=== PATIENT | female | born 1930 | race Caucasian/White ===

== ENCOUNTER 2017-05-26 09:54 | Inpatient (IN) | payer OTHER ==
[2017-05-26 10:33] LABS: BASOPHILS % (AUTO) 0.3 % (0.0-3.0); EOSINOPHILS % (AUTO) 0.3 % (0.0-7.0); HEMATOCRIT 40.9 % (37.0-47.0); HEMOGLOBIN 14.3 g/dl (12.0-16.0); IMMATURE GRANULOCYTE % (AUTO) 0.6 % (0.0-5.0); LYMPHOCYTES % (AUTO) 9.4 (10.0-50.0); MEAN CORPUSCULAR HEMOGLOBIN 34.1 pg (27.0-31.0); MEAN CORPUSCULAR VOLUME 97.6 fl (81.0-99.0); MONOCYTES # (AUTO) 0.4 K/uL (0.4-2.0); MONOCYTES % (AUTO) 3.6 (0-10); NEUTROPHILS % (AUTO) 85.8; PLATELET COUNT 186 10^3/uL (140-440); RED BLOOD COUNT 4.19 10^6/ul (4.20-5.40); WHITE BLOOD COUNT 10.52 K/ul (4.6-10.2)
--- NOTE | 2017-05-26 10:40 | CT ---
EXAM: CT chest without intravenous contrast 05/26/2017. Sagittal and coronal reformatted images obt ained HISTORY: Cough COMPARISON: 10/06/2015 FINDINGS: Moderate cardiomegaly. No pericardial effusion. The right lung remains normally aerated. Consolidation is present within the left lung base. This e xtends from the level of the left hilum through the dependent aspect of the left lower lobe. There i s occlusion of multiple lower lobe airways. Aspiration could potentially give this appearance. This likely represents left lower lobe pneumonia. No pleural effusion. No pneumothorax. Limited views of the upper abdomen show no acute abnormality. 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 Multilevel anterior wedging configuration. No acu te fracture. IMPRESSION: 1. Consolidation extends in the left hilum to the dependent aspect of the left lower lobe. This is most compatible with pneumonia. 2. Occlusion of multiple left lower lobe airways. This combination of findings could potentially re late to aspiration. Correlate clinically. 3. Cardiomegaly.
[2017-05-26 10:58] LABS: ABG BASE EXCESS 3 (-2.0-2.0); ABG HCO3 27.7 (22.0-26.0); ABG PCO2 42.1 mmHg (35-45); ABG PH 7.426 (7.35-7.45); ABG TCO2 29 (22.0-28.0)
[2017-05-26 11:04] LABS: ALBUMIN 3.3 g/dL (3.4-5.0); ALBUMIN/GLOBULIN RATIO 0.87; ANION GAP 16.8; BILIRUBIN,TOTAL 0.75 mg/dL (0.00-1.20); BUN/CREATININE RATIO 22.09; CALCIUM 9.9 mg/dL (8.2-10.2); CREATININE 0.86 mg/dL (0.60-1.30); DIGOXIN 0.9 ng/mL (1.00-2.00); POTASSIUM 3.8 mmol/L (3.5-5.10); TOTAL PROTEIN 7.1 g/dL (5.8-8.1)
[2017-05-26] MEDS ORDERED: NITROSTAT SL PRN (11:30)
--- NOTE | 2017-05-26 11:34 | ED.PDOC ---
General ED Provider: Dr. HARRIS HUFF Chief Complaint: Cough Stated Complaint: cough Time Seen by Physician: 10:00 Information Source: [facility], EMT Exam Limitations: No limitations Primary Care Provider: SERGIO SAWANT Nursing and Triage Documentation Reviewed and Agree: Yes Respiratory Complaint Exam - Respiratory Complaint/Exam Onset/Duration: 1 day Symptoms Are: Still present Timing: Intermittent Initial Severity: Moderate Current Severity: Mild Location: Chest Character: Reports: Non-productive cough Aggravating: Reports: None Alleviating: Reports: None Associated Signs and Symptoms: Reports: URI. Denies: Rapid breathing, Dyspnea, Fever, Chills, Chest pain, Pleuritic chest pain, Wheezing, Hemoptysis, Dizziness , Calf pain, Calf swelling, Edema, Nasal congestion, Hoarseness, Sinus discomfort, Vomiting, Sore throat, Weight loss, Decreased oral intake, Increased thirst, Increased appetite, Increased urination Related History: Reports: Similar episode History of Healthcare-Acquired Pneumonia: Lives at [facility] Related Surgical History: Reports: None Pulmonary Embolism Risk Factors: Bedrest Cardiac Risk Factors: Reports: Hypertension Pseudomonas Risk Factors: Reports: None Tuberculosis Risk Factors: Reports: Chronic Resp. Faliure Status Asthmaticus Risk Factors: Reports: None Home Oxygen Use: No Home Peak Flow: Recent personal best Recent Stress Test: No Recent Echo/LV Function: No Current Antibiotic Use: No Current Asthma Medication Use: No Respiratory Distress: None Inadequate Respiratory Effort: No Dysphagia Present: No Stridor Present: No JVD Present: No Accessory Muscle Use: No Retractions: Not Present Diminished Breath Sounds: No Sinus Tenderness: None Grunting Respirations: No Kussmaul Respirations: No Differential Diagnoses: Pneumonia, Bronchitis Review of Systems - Review Of Systems Constitutional: Reports: Malaise Eyes: Reports: No symptoms Ears, Nose, Mouth, Throat: Reports: No symptoms Respiratory: Reports: Cough Cardiac: Reports: No symptoms GI: Reports: No symptoms : Reports: No symptoms Musculoskeletal: Reports: No symptoms Skin: Reports: No symptoms Neurological: Reports: No symptoms Endocrine: Reports: No symptoms Hematologic/Lymphatic: Reports: No symptoms All Other Systems: Reviewed and Negative Past Medical History - Past Medical History Previously Healthy: Yes Endocrine: Reports: Hypothyroid Cardiovascular: Reports: CAD, Hypertension, A-Fib Respiratory: Reports: None Hematological: Reports: Anemia Gastrointestinal: Reports: GERD Genitourinary: Reports: Unknown (evaluated yesterday for UTI) Neuro/Psych: Reports: Depression, Bipolar Disorder, Dementia Musculoskeletal: Reports: Arthritis, Back Pain, Joint Pain, Unknown Cancer: Reports: Unknown Last Menstrual Period: hysterectomy - Surgical History General Surgical History: Reports: Appendectomy - Family History Family History: Reports: Unknown - Social History Smoking Status: Never smoker Hx Substance Use: No Alcohol Screening: None Physical Exam - Physical Exam Appearance: Well-appearing, No pain distress, Well-nourished Eyes: BASIL, EOMI, Conjunctiva clear ENT: Ears normal, Nose normal, Oropharynx normal Respiratory: Rhonchi Cardiovascular: RRR, Pulses normal, No rub, No murmur GI/: Soft, Nontender, No masses, Bowel sounds normal, No Organomegaly Musculoskeletal: Normal strength, ROM intact, No edema, No calf tenderness Skin: Warm, Dry, Normal color Neurological: Sensation intact, Motor intact, Reflexes intact, Cranial nerves intact, Alert, Oriented Psychiatric: Affect appropriate, Mood appropriate Interpretation - Radiology Interpretation Radiology Interpretation By: Radiologist Radiology Results: Positive (pneumonia) - Principal Process Engineer Ectopy: None (slow afib) Physician Notification - Case Discussed Physician Notified: sawant Time of Notification: 11:34 (admitt) Admit To: Inpatient Critical Care Note - Critical Care Note Total Time (mins): 0 Course - Course Hematology/Chemistry: 05/26/17 10:28 05/26/17 10:28 Orders, Labs, Meds: Lab Review 05/26/17 05/26/17 05/26/17 10:28 10:28 10:36 WBC 10.52 H RBC 4.19 L Hgb 14.3 Hct 40.9 MCV 97.6 MCH 34.1 H MCHC 35.0 RDW Coeff of [place] 12.6 Plt Count 186 Immature Gran % (Auto) 0.6 Neut % (Auto) 85.8 Lymph % (Auto) 9.4 L [place] % (Auto) 3.6 Eos % (Auto) 0.3 Baso % (Auto) 0.3 Immature Gran # (Auto) 0.1 Neut # 9.0 H Lymph # 1.0 [place] # 0.4 Eos # 0.0 Baso # 0.0 Puncture Site Rrad O2 Saturation 92.0 L ABG pH 7.426 ABG pCO2 42.1 ABG pO2 61.0 L ABG HCO3 27.7 H ABG Total CO2 29 H ABG Base Excess 3 H Demetri Test + FiO2 % 21.0 Sodium 137 Potassium 3.8 Chloride 101 Carbon Dioxide 23 Anion Gap 16.8 BUN 19 H Creatinine 0.86 Estimated GFR (MDRD) 63.00 BUN/Creatinine Ratio 22.09 Glucose 227 H Calcium 9.9 Total Bilirubin 0.75 AST 22 ALT 18 Alkaline Phosphatase 89 Total Protein 7.1 Albumin 3.3 L Globulin 3.8 Albumin/Globulin Ratio 0.87 Digoxin 0.90 L Orders Category Date Time Status ADMIT PATIENT INPATIENT .TO [facility] (MONITORED BED) ADMISSION 05/26/17 11: 27 Ordered ABG DRAW REQUEST Stat CARDIO 05/26/17 10:36 Ordered EKG-(ED ONLY) Stat CARDIO 05/26/17 10:36 Ordered EKG-(IP & OP ONLY) DAILY CARDIO 05/27/17 06:00 Ordered EKG-(IP & OP ONLY) DAILY CARDIO 05/28/17 06:00 Ordered EKG-(IP & OP ONLY) DAILY CARDIO 05/29/17 06:00 Ordered OXYGEN Routine CARDIO 05/26/17 11:28 Ordered ACTIVITY .Complete BR CARE 05/26/17 11:27 Ordered BLOOD GLUCOSE MONITORING ACCUCHECK Q6H CARE 05/26/17 11:27 Ordered TELEMETRY MONITORING TELE CARE 05/26/17 11:28 Ordered VITAL SIGNS Q8HR CARE 05/26/17 11:27 Ordered REGULAR DIET DIETARY 05/26/17 Dinner Ordered ABG Stat LAB 05/26/17 10:36 Completed BLOOD CULTURE Stat LAB 05/26/17 10:12 Ordered CBC W/ AUTO DIFF DAILY@0600 LAB 05/27/17 06:00 Ordered CBC W/ AUTO DIFF DAILY@0600 LAB 05/28/17 06:00 Ordered CBC W/ AUTO DIFF DAILY@0600 LAB 05/29/17 06:00 Ordered CBC W/ AUTO DIFF DAILY@0600 LAB 05/30/17 06:00 Ordered CBC W/ AUTO DIFF DAILY@0600 LAB 05/31/17 06:00 Ordered CBC W/ AUTO DIFF DAILY@0600 LAB 06/01/17 06:00 Ordered CBC W/ AUTO DIFF DAILY@0600 LAB 06/02/17 06:00 Ordered CBC W/ AUTO DIFF DAILY@0600 LAB 06/03/17 06:00 Ordered CBC W/ AUTO DIFF DAILY@0600 LAB 06/04/17 06:00 Ordered CBC W/ AUTO DIFF DAILY@0600 LAB 06/05/17 06:00 Ordered CBC W/ AUTO DIFF DAILY@0600 LAB 06/06/17 06:00 Ordered CBC W/ AUTO DIFF DAILY@0600 LAB 06/07/17 06:00 Ordered CBC W/ AUTO DIFF DAILY@0600 LAB 06/08/17 06:00 Ordered CBC W/ AUTO DIFF DAILY@0600 LAB 06/09/17 06:00 Ordered CBC W/ AUTO DIFF DAILY@0600 LAB 06/10/17 06:00 Ordered CBC W/ AUTO DIFF DAILY@0600 LAB 06/11/17 06:00 Ordered CBC W/ AUTO DIFF DAILY@0600 LAB 06/12/17 06:00 Ordered CBC W/ AUTO DIFF DAILY@06 LAB 06/13/17 06:00 Ordered CBC W/ AUTO DIFF DAILY@0600 LAB 06/14/17 06:00 Ordered CBC W/ AUTO DIFF DAILY@06 LAB 06/15/17 06:00 Ordered CBC W/ AUTO DIFF [facility] LAB 05/26/17 10:11 Ordered COMPREHENSIVE METABOLIC PANEL DAILY@0600 LAB 05/27/17 06:00 Ordered COMPREHENSIVE METABOLIC PANEL DAILY@0600 LAB 05/28/17 06:00 Ordered COMPREHENSIVE METABOLIC PANEL DAILY@0600 LAB 05/29/17 06:00 Ordered COMPREHENSIVE METABOLIC PANEL DAILY@0600 LAB 05/30/17 06:00 Ordered COMPREHENSIVE METABOLIC PANEL DAILY@0600 LAB 05/31/17 06:00 Ordered COMPREHENSIVE METABOLIC PANEL DAILY@06 LAB 06/01/17 06:00 Ordered COMPREHENSIVE METABOLIC PANEL DAILY@0600 LAB 06/02/17 06:00 Ordered COMPREHENSIVE METABOLIC PANEL DAILY@06 LAB 06/03/17 06:00 Ordered COMPREHENSIVE METABOLIC PANEL DAILY@0600 LAB 06/04/17 06:00 Ordered COMPREHENSIVE METABOLIC PANEL DAILY@0600 LAB 06/05/17 06:00 Ordered COMPREHENSIVE METABOLIC PANEL DAILY@0600 LAB 06/06/17 06:00 Ordered COMPREHENSIVE METABOLIC PANEL DAILY@0600 LAB 06/07/17 06:00 Ordered COMPREHENSIVE METABOLIC PANEL DAILY@0600 LAB 06/08/17 06:00 Ordered COMPREHENSIVE METABOLIC PANEL DAILY@0600 LAB 06/09/17 06:00 Ordered COMPREHENSIVE METABOLIC PANEL DAILY@0600 LAB 06/10/17 06:00 Ordered COMPREHENSIVE METABOLIC PANEL DAILY@0600 LAB 06/11/17 06:00 Ordered COMPREHENSIVE METABOLIC PANEL DAILY@0600 LAB 06/12/17 06:00 Ordered COMPREHENSIVE METABOLIC PANEL DAILY@0600 LAB 06/13/17 06:00 Ordered COMPREHENSIVE METABOLIC PANEL DAILY@0600 LAB 06/14/17 06:00 Ordered COMPREHENSIVE METABOLIC PANEL DAILY@0600 LAB 06/15/17 06:00 Ordered COMPREHENSIVE METABOLIC PANEL Stat LAB 05/26/17 10:11 Ordered CREATINE KINASE Q8H LAB 05/26/17 17:30 Ordered CREATINE KINASE Q8H LAB 05/27/17 01:30 Ordered DIGOXIN Stat LAB 05/26/17 10:28 Completed TROPONIN I Q8H LAB 05/26/17 17:30 Ordered TROPONIN I Q8H LAB 05/27/17 01:30 Ordered Acetaminophen [Tylenol] MEDS 05/26/17 21:00 Ordered 1,000 mg PO BID Alprazolam [Xanax] MEDS 05/26/17 15:00 Ordered 0.25 mg PO TID Furosemide [Lasix Tab] MEDS 05/27/17 06:30 Ordered 20 mg PO QDAC Levofloxacin/D5w [Levaquin] 500 mg MEDS 05/27/17 09:00 Ordered Premix 100 ml D5w 1 bag IV DAILY Levothyroxine Sodium [Synthroid] MEDS 05/27/17 06:30 Ordered 112 mcg PO QDAC Losartan Potassium MEDS 05/27/17 09:00 Ordered 50 mg PO DAILY Nitroglycerin [Nitrostat] MEDS 05/26/17 11:30 Ordered 0.4 mg SL Q5MIN X 3 DOSES PRN Potassium Chloride [Micro-K Cap] MEDS 05/26/17 21:00 Ordered 20 meq PO BID Pravastatin Sodium [Pravachol] MEDS 05/27/17 09:00 Ordered 20 mg PO DAILY Rivaroxaban [Xarelto] MEDS 05/27/17 09:00 Ordered 20 mg PO DAILY Sodium Chloride 0.9% [Sodium Chloride] 1,000 ml MEDS 05/26/17 11:30 Ordered IV 75 mls/hr CT CHEST W/O CONTRAST Stat RADS 05/26/17 10:11 Ordered Medications Generic Name Dose Route Start Last Admin Trade Name Freq PRN Reason Stop Dose Admin Levofloxacin/Dextrose 500 mg/ 100 mls @ 100 mls/hr 05/27/17 09:00 Dextrose IV DAILY SANCHEZ Sodium Chloride 1,000 mls @ 75 mls/hr 05/26/17 11:30 Sodium Chloride IV .[id number] SANCHEZ Vital Signs: Temp Pulse Resp BP Pulse Ox 05/26/17 09:55 98.1 F 62 18 101/52 L 95 Departure - Departure Time of Disposition: 11:34 Disposition: ADMITTED INPATIENT Discharge Problem: Cough Pneumonia Qualifiers: Pneumonia type: due to unspecified organism Laterality: left Lung location: lower lobe of lung Qualified Code(s): J18.1 - Lobar pneumonia, unspecified organism Instructions: Community Acquired Pneumonia (ED) Condition: Fair Pt referred to PMD for follow-up: Yes (admitt) Allergies/Adverse Reactions: Allergies haloperidol [From Haldol] Adverse Reaction (Verified 05/26/17 10:13) Penicillins Adverse Reaction (Verified 05/26/17 10:12) Home Medications: Ambulatory Orders Clonidine HCl [Catapres] 0.1 mg PO BID 05/02/13 Digoxin 0.125 mg PO DAILY 05/02/13 Diltiazem HCl [Cardizem LA] 120 mg PO DAILY 05/02/13 Donepezil HCl [Aricept] 10 mg PO BEDTIME 05/02/13 Furosemide [Lasix Tab] 20 mg PO QDAC 05/02/13 Nitroglycerin [Nitrostat] 0.4 mg SL Q5MIN X 3 DOSES PRN 05/02/13 Pravastatin Sodium [Pravachol] 20 mg PO DAILY 05/02/13 Rivaroxaban [Xarelto] 20 mg PO DAILY 05/02/13 Acetaminophen [Mapap] 1,000 mg PO BID 07/09/13 Quetiapine Fumarate [Seroquel] 12.5 mg PO BEDTIME 07/09/13 Potassium Chloride [Micro-K Cap] 20 meq PO BID 07/29/13 Alprazolam [Xanax] 0.25 mg PO TID 11/11/13 Acetaminophen [Tylenol] 650 mg PO Q8HR PRN 12/17/13 Citalopram Hydrobromide [Celexa] 40 mg PO DAILY 12/18/13 Levothyroxine Sodium [Synthroid] 112 mcg PO QDAC 10/06/15 Dexlansoprazole [Dexilant] 30 mg PO DAILY 05/26/17 Ferrous Sulfate 325 mg PO BID 05/26/17 Folic Acid 1 mg PO DAILY 05/26/17 Losartan Potassium [Cozaar] 50 mg PO DAILY 05/26/17
[2017-05-26] MEDS ORDERED: SOLU-MEDROL 125 MG IVP STA (11:36)
[2017-05-26] MEDS: SODIUM CHLORIDE 1,000 ML IV SCH (12:23)
[2017-05-26] MEDS ORDERED: LEVAQUIN 100 ML IV ONE (12:46)
[2017-05-26] MEDS: DUONEB NEB SCH ×3 (12:49→23:11)
[2017-05-26] MEDS: LEVAQUIN 500 MG in PREMIX 100 ML D5W 1 BAG IV SCH (12:50)
[2017-05-26] MEDS ORDERED: LASIX ONE (13:12)
[2017-05-26 13:49] VITALS: BMI 28.4
[2017-05-26] MEDS ORDERED: TYLENOL PO PRN (14:29)
[2017-05-26] MEDS: XANAX PO SCH ×2 (14:47→21:09)
[2017-05-26] MEDS ORDERED: XANAX PO SCH (15:00)
[2017-05-26 17:46] LABS: TROPONIN I 0.022 ng/ml (0.0000-0.4000)
[2017-05-26] MEDS ORDERED: TYLENOL PO SCH (21:00)
[2017-05-26] MEDS ORDERED: QUETIAPINE FUMARATE 12.5 MG PO SCH (21:00)
[2017-05-26] MEDS ORDERED: NON-FORMULARY MEDICATION (Ferrous Sulfate [Ferrous Sulfate] 325 MG) PO SCH ×22 (21:00)
[2017-05-26] MEDS: SOLU-MEDROL 125 MG IVP SCH (21:06)
[2017-05-26] MEDS: ARICEPT PO SCH (21:07)
[2017-05-26] MEDS: MICRO-K CAP PO SCH (21:08)
[2017-05-27 01:24] LABS: BASOPHILS % (AUTO) 0.4 % (0.0-3.0); HEMATOCRIT 38.1 % (37.0-47.0); HEMOGLOBIN 13.5 g/dl (12.0-16.0); IMMATURE GRANULOCYTE % (AUTO) 1.5 % (0.0-5.0); LYMPHOCYTES # (AUTO) 0.4 K/uL (0.60-3.4); LYMPHOCYTES % (AUTO) 3.9 (10.0-50.0); MEAN CORPUSCULAR HEMOGLOBIN 34.2 pg (27.0-31.0); MEAN CORPUSCULAR HGB CONC 35.4 (31.8-35.4); MEAN CORPUSCULAR VOLUME 96.5 fl (81.0-99.0); MONOCYTES # (AUTO) 0.1 K/uL (0.4-2.0); MONOCYTES % (AUTO) 0.8 (0-10); NEUTROPHILS # (AUTO) 8.4 K/ul (2.0-6.9); NEUTROPHILS % (AUTO) 93.4; PLATELET COUNT 171 10^3/uL (140-440); RED BLOOD COUNT 3.95 10^6/ul (4.20-5.40); WHITE BLOOD COUNT 8.95 K/ul (4.6-10.2)
[2017-05-27] MEDS: SODIUM CHLORIDE 1,000 ML IV SCH ×2 (01:27→22:42)
[2017-05-27 01:34] LABS: CREATINE KINASE 30 U/L
[2017-05-27 01:49] LABS: ALBUMIN/GLOBULIN RATIO 0.86; ANION GAP 16.4; BILIRUBIN,TOTAL 0.55 mg/dL (0.00-1.20); BUN/CREATININE RATIO 27.27; CALCIUM 9.7 mg/dL (8.2-10.2); CREATININE 0.77 mg/dL (0.60-1.30); POTASSIUM 3.4 mmol/L (3.5-5.10); TOTAL PROTEIN 6.5 g/dL (5.8-8.1)
[2017-05-27] MEDS: SOLU-MEDROL 125 MG IVP SCH ×3 (04:15→20:16)
[2017-05-27] MEDS: DUONEB NEB SCH ×4 (05:11→23:07)
[2017-05-27] MEDS: LASIX TAB PO SCH (05:47)
[2017-05-27] MEDS: SYNTHROID PO SCH (05:47)
[2017-05-27] MEDS ORDERED: XANAX PO STA (08:41)
[2017-05-27] MEDS ORDERED: NON-FORMULARY MEDICATION (Rivaroxaban [Xarelto] 20 MG) PO SCH (09:00)
[2017-05-27] MEDS ORDERED: NON-FORMULARY MEDICATION (Losartan Potassium 50 MG) PO SCH (09:00)
[2017-05-27] MEDS ORDERED: NON-FORMULARY MEDICATION (Digoxin [Digoxin] 0.125 MG) PO SCH ×22 (09:00)
[2017-05-27] MEDS ORDERED: NON-FORMULARY MEDICATION (Dexlansoprazole [Dexilant] 30 MG) PO SCH (09:00)
[2017-05-27] MEDS ORDERED: NON-FORMULARY MEDICATION (Citalopram Hydrobromide [Celexa] 40 MG) PO SCH ×22 (09:00)
[2017-05-27] MEDS ORDERED: LEVAQUIN 500 MG in PREMIX 100 ML D5W 1 BAG IV SCH (09:00)
[2017-05-27] MEDS ORDERED: CARDIZEM PO SCH (09:00)
[2017-05-27] MEDS: XANAX PO SCH ×3 (10:19→20:15)
[2017-05-27] MEDS: XARELTO PO SCH (10:19)
[2017-05-27] MEDS: PRAVACHOL PO SCH (10:20)
[2017-05-27] MEDS: LANOXIN PO SCH (10:20)
[2017-05-27] MEDS: COZAAR PO SCH (10:20)
[2017-05-27] MEDS: MICRO-K CAP PO SCH ×2 (10:20→20:15)
[2017-05-27] MEDS: CARDIZEM PO SCH ×4 (10:21→20:14)
[2017-05-27] MEDS: FERROUS SULFATE PO SCH ×2 (10:21→20:14)
[2017-05-27] MEDS: FOLIC ACID PO SCH (10:21)
[2017-05-27] MEDS: CELEXA PO SCH (10:22)
[2017-05-27] MEDS: PROTONIX PO SCH (10:22)
--- NOTE | 2017-05-27 11:16 | PCM.PROG ---
Attending Provider: ATTENDING PROVIDER: Dr. SERGIO GALEAS DATE OF SERVICE: 05/27/17 SUBJECTIVE: This 86 year old WHITE/ F was hospitalized 05/26/17. The patient is seen with Roro/Nurse Practitioner. The patient is confused, anxious and agitated. She is coughing. No fever. REVIEW OF SYSTEMS: CONSTITUTIONAL: Confused and anxious. No night sweats. No fever or chills. HEENT: Eyes: No visual changes. No eye pain. No eye discharge. ENT: No runny nose. No epistaxis. No sinus pain. No odynophagia. No congestion. RESPIRATORY: Cough and congestion. No hemoptysis. No shortness of breath. CARDIOVASCULAR: No angina symptoms. No CHF symptoms. No atypical chest pain for CAD. No palpitations. No orthopnea.. GASTROINTESTINAL: No abdominal pain. No nausea or vomiting. No diarrhea or constipation. No hematemesis. No hematochezia. GENITOURINARY: No urgency. No frequency. No dysuria. No hematuria. No obstructive symptoms. No discharge. No pain. No significant abnormal bleeding. MUSCULOSKELETAL: No musculoskeletal pain; no joint swelling. NEUROLOGICAL: Awake but confused. No headache. No neck pain. No syncope. No seizures. No dizziness. PSYCHIATRIC: Anxious. No depression. No suicidal thoughts. No homicidal thoughts. SKIN: No rash. No lesions. No wounds. ENDOCRINE: No unexplained weight loss. No weight gain. HEMATOLOGIC/LYMPHATIC: No anemia. No purpura. No petechiae. No prolonged or excessive bleeding. No palpable lymph nodes. PHYSICAL EXAMINATION: GENERAL: The patient is awake but confused lying in bed in no distress. VITAL SIGNS: Temperature 97.8 F, Pulse 92, Respiratory Rate 19, BP 129/72, Pulse Ox 96% HEENT: Head normocephalic, atraumatic. Eyes: Extraocular muscles are intact. Pupils are equal, round and reactive to light and accommodation. Ears: No lesions. Nose appeared normal. Throat: No exudate or erythema. NECK: Supple. No JVD, no carotid bruit. No lymphadenopathy or thyromegaly. LUNGS: Diminished breath sounds bilaterally. Clear to auscultation. Percussion note normal. Chest symmetrical. HEART: S1, S2, no S3. No murmurs. No cyanosis or clubbing. No ascites. Pulses: Dorsalis pedis and posterior tibial pulses +1 to +2 both sides. ABDOMEN: Soft. Non-tender. Bowel sounds active. No CVA tenderness. No mass felt. EXTREMITIES: No edema. Full range of motion of all extremities, equal. NEUROLOGIC: Awake; confused. No focal deficit. Cranial nerves II through XII are grossly intact. No headache, no double vision or headache. SKIN: Not dry. Intact. Turgor-normal. LYMPHATIC: No palpable lymph nodes/no lymphedema. MUSCULOSKELETAL: Normal joints with no swelling. Muscle tone is normal. LAB REVIEW: 05/27/17 01:05 05/27/17 01:05 05/27/17 01:05: Sodium 138, Potassium 3.4 L, Chloride 102, Carbon Dioxide 23, Anion Gap 16.4, BUN 21 H, Creatinine 0.77, Estimated GFR (MDRD) 71.00, BUN/ Creatinine Ratio 27.27, Glucose 202 H, Calcium 9.7, Total Bilirubin 0.55, AST 11 L, ALT 17, Alkaline Phosphatase 82, Total Protein 6.5, Albumin 3.0 L, Globulin 3.5, Albumin/Globulin Ratio 0.86, TSH 2.563, Free T4 0.85 05/27/17 01:05: WBC 8.95, RBC 3.95 L, Hgb 13.5, Hct 38.1, MCV 96.5, MCH 34.2 H, MCHC 35.4, RDW Coeff of [place] 12.2, Plt Count 171, Immature Gran % (Auto) 1.5, Neut % (Auto) 93.4, Lymph % (Auto) 3.9 L, [place] % (Auto) 0.8, Eos % (Auto) 0.0, Baso % (Auto) 0.4, Immature Gran # (Auto) 0.1, Neut # 8.4 H, Lymph # 0.4 L, [place] # 0.1 L, Eos # 0.0, Baso # 0.0 05/27/17 01:05: Total Creatine Kinase 30, Troponin I < 0.0100 05/26/17 17:30: Total Creatine Kinase 36, Troponin I 0.0220 ASSESSMENT: 1. Pneumonia, left lower lobe. 2. Dementia with behavioral disturbances. 3. Hypokalemia. PLAN: 1. Decrease IV fluids to 40 mL/hr 2. Xanax 0.5 mg p.o. extra this a.m. 3. Echocardiogram if not done 4. Will check on speech consult Plan and coordination of the patient's care discussed in the presence of Chief Green Officer and nurse. CONDITION: Stable SCRIBED BY: Yung JACKSONist scribed while in presence of service performed by Dr. SERGIO GALEAS/RORO LOVE APRN on 05/27/17 ([id number])
[2017-05-27] MEDS: LEVAQUIN 500 MG in PREMIX 100 ML D5W 1 BAG IV SCH (19:24)
[2017-05-27] MEDS: SEROQUEL PO SCH (20:14)
[2017-05-27] MEDS: ARICEPT PO SCH (20:14)
[2017-05-28] MEDS: SOLU-MEDROL 125 MG IVP SCH ×3 (04:07→22:03)
[2017-05-28 04:58] LABS: BASOPHILS % (AUTO) 0.1 % (0.0-3.0); HEMOGLOBIN 13.3 g/dl (12.0-16.0); IMMATURE GRANULOCYTE % (AUTO) 0.7 % (0.0-5.0); LYMPHOCYTES # (AUTO) 0.6 K/uL (0.60-3.4); LYMPHOCYTES % (AUTO) 4.5 (10.0-50.0); MEAN CORPUSCULAR HEMOGLOBIN 33.8 pg (27.0-31.0); MEAN CORPUSCULAR VOLUME 96.7 fl (81.0-99.0); MONOCYTES # (AUTO) 0.3 K/uL (0.4-2.0); MONOCYTES % (AUTO) 2.5 (0-10); NEUTROPHILS # (AUTO) 12.5 K/ul (2.0-6.9); NEUTROPHILS % (AUTO) 92.2; PLATELET COUNT 219 10^3/uL (140-440); RED BLOOD COUNT 3.93 10^6/ul (4.20-5.40); WHITE BLOOD COUNT 13.59 K/ul (4.6-10.2)
[2017-05-28] MEDS: DUONEB NEB SCH ×4 (05:18→23:20)
[2017-05-28 05:22] LABS: ALBUMIN/GLOBULIN RATIO 0.91; ANION GAP 15.5; BILIRUBIN,TOTAL 0.44 mg/dL (0.00-1.20); BUN/CREATININE RATIO 37.66; CALCIUM 9.9 mg/dL (8.2-10.2); CREATININE 0.77 mg/dL (0.60-1.30); POTASSIUM 3.5 mmol/L (3.5-5.10); TOTAL PROTEIN 6.3 g/dL (5.8-8.1)
[2017-05-28] MEDS: LASIX TAB PO SCH (06:05)
[2017-05-28] MEDS: PROTONIX PO SCH (06:05)
[2017-05-28] MEDS: SYNTHROID PO SCH (06:05)
[2017-05-28] MEDS: CELEXA PO SCH (08:27)
[2017-05-28] MEDS: FERROUS SULFATE PO SCH ×2 (08:27→22:04)
[2017-05-28] MEDS: XARELTO PO SCH (08:27)
[2017-05-28] MEDS: CARDIZEM PO SCH ×4 (08:27→22:03)
[2017-05-28] MEDS: MICRO-K CAP PO SCH ×2 (08:28→22:04)
[2017-05-28] MEDS: LANOXIN PO SCH (08:28)
[2017-05-28] MEDS: XANAX PO SCH ×3 (08:28→22:03)
[2017-05-28] MEDS: FOLIC ACID PO SCH (08:28)
[2017-05-28] MEDS: COZAAR PO SCH (08:29)
[2017-05-28] MEDS: PRAVACHOL PO SCH (08:29)
[2017-05-28] MEDS: LEVAQUIN 500 MG in PREMIX 100 ML D5W 1 BAG IV SCH (08:29)
--- NOTE | 2017-05-28 08:50 | RS.SLPCNOT ---
Speech Case Note Date of Note: 05/28/17 Title: Speech Consult Note: The patient is an 86 year old female who was admitted to this hospital with a diagnosis of left lower lobe pneumonia. The patient is a resident of a local [facility] care facility who is currently receiving and was admitted to this facility with a mechanical soft diet with nectar thick liquids. Dysphagia screening completed this date and found the patient to demonstrate safe swallowing of the current diet with no further dysphagia testing or treatment recommended at this time. The patient was dependent for feeding this date and consumed approx 25% of her breakfast meal. The patient's PMH is significant for GERD, Dementia with behavioral disturbance, Depression, Bipolar disorder, HTN, A-fib, CAD
--- NOTE | 2017-05-28 09:38 | PCM.PROG ---
Attending Provider: ATTENDING PROVIDER: Dr. SERGIO GALEAS DATE OF SERVICE: 05/28/17 SUBJECTIVE: This 86 year old WHITE/ F was hospitalized 05/26/17. The patient is seen with Roro, Nurse Practitioner. The patient is sitting up in bed, is alert but confused. She is much less anxious than yesterday. REVIEW OF SYSTEMS: CONSTITUTIONAL: No night sweats. No fatigue, malaise, lethargy. No fever or chills. HEENT: Eyes: No visual changes. No eye pain. No eye discharge. ENT: No runny nose. No epistaxis. No sinus pain. No odynophagia. No congestion. RESPIRATORY: Cough and congestion. No hemoptysis. No shortness of breath. CARDIOVASCULAR: No angina symptoms. No CHF symptoms. No atypical chest pain for CAD. No palpitations. No orthopnea.. GASTROINTESTINAL: No abdominal pain. No nausea or vomiting. No diarrhea or constipation. No hematemesis. No hematochezia. GENITOURINARY: No urgency. No frequency. No dysuria. No hematuria. No obstructive symptoms. No discharge. No pain. No significant abnormal bleeding. MUSCULOSKELETAL: No musculoskeletal pain; no joint swelling. NEUROLOGICAL: Awake, confused, seems oriented to person. No headache. No neck pain. No syncope. No seizures. No dizziness. PSYCHIATRIC: Not anxious. No depression. No suicidal thoughts. No homicidal thoughts. SKIN: No rash. No lesions. No wounds. ENDOCRINE: No unexplained weight loss. No weight gain. HEMATOLOGIC/LYMPHATIC: No anemia. No purpura. No petechiae. No prolonged or excessive bleeding. No palpable lymph nodes. PHYSICAL EXAMINATION: GENERAL: The patient is awake, confused but oriented to person, sitting in bed in no distress. VITAL SIGNS: Temperature 98.8 F, Pulse 97, Respiratory Rate 16, BP 156/86, Pulse Ox 97% HEENT: Head normocephalic, atraumatic. Eyes: Extraocular muscles are intact. Pupils are equal, round and reactive to light and accommodation. Ears: No lesions. Nose appeared normal. Throat: No exudate or erythema. NECK: Supple. No JVD, no carotid bruit. No lymphadenopathy or thyromegaly. LUNGS: Diminished breath sounds bilaterally. Clear to auscultation. Percussion note normal. Chest symmetrical. HEART: S1, S2, no S3. No murmurs. No cyanosis or clubbing. No ascites. Pulses: Dorsalis pedis and posterior tibial pulses +1 to +2 both sides. ABDOMEN: Soft. Non-tender. Bowel sounds active. No CVA tenderness. No mass felt. EXTREMITIES: No edema. Full range of motion of all extremities, equal. NEUROLOGIC: No focal deficit. Cranial nerves II through XII are grossly intact. No headache, no double vision or headache. SKIN: Not dry. Intact. Turgor-normal. LYMPHATIC: No palpable lymph nodes/no lymphedema. MUSCULOSKELETAL: Normal joints with no swelling. Muscle tone is normal. LAB REVIEW: 05/28/17 04:58 05/28/17 04:58 05/28/17 04:58: Sodium 143, Potassium 3.5, Chloride 106, Carbon Dioxide 25, Anion Gap 15.5, BUN 29 H, Creatinine 0.77, Estimated GFR (MDRD) 71.00, BUN/ Creatinine Ratio 37.66, Glucose 201 H, Calcium 9.9, Total Bilirubin 0.44, AST 23 , ALT 19, Alkaline Phosphatase 80, Total Protein 6.3, Albumin 3.0 L, Globulin 3.3, Albumin/Globulin Ratio 0.91 05/28/17 04:58: WBC 13.59 H, RBC 3.93 L, Hgb 13.3, Hct 38.0, MCV 96.7, MCH 33.8 H, MCHC 35.0, RDW Coeff of [place] 12.6, Plt Count 219, Immature Gran % (Auto) 0.7, Neut % (Auto) 92.2, Lymph % (Auto) 4.5 L, [place] % (Auto) 2.5, Eos % (Auto) 0.0, Baso % (Auto) 0.1, Immature Gran # (Auto) 0.1, Neut # 12.5 H, Lymph # 0.6, [place] # 0.3 L, Eos # 0.0, Baso # 0.0 ASSESSMENT: 1. Pneumonia, left lower lobe. 2. Dementia with behavioral disturbances. 3. Hypokalemia. resolved PLAN: 1. Tussionex one tsp b.i.d. q.12 p.r.n. 2. Speech is present this morning for evaluation 3. The patient has been receiving nectar thick liquids and mechanical soft diet at senior care Plan and coordination of the patient's care discussed in the presence of Chemical Applicator and nurse. CONDITION: Stable SCRIBED BY: ARIANNA BASHIR Cast Associate scribed while in presence of service performed by Dr. SERGIO GALEAS/RORO LOVE APRN on 05/28/17 ([id number])
[2017-05-28] MEDS: SODIUM CHLORIDE 1,000 ML IV SCH (09:52)
[2017-05-28] MEDS: TUSSIONEX PO PRN (13:37)
[2017-05-28] MEDS: SEROQUEL PO SCH (22:04)
[2017-05-28] MEDS: ARICEPT PO SCH (22:04)
[2017-05-29] MEDS: SODIUM CHLORIDE 1,000 ML IV SCH (02:54)
[2017-05-29] MEDS: SOLU-MEDROL 125 MG IVP SCH (04:04)
[2017-05-29 04:59] LABS: BASOPHILS % (AUTO) 0.1 % (0.0-3.0); HEMATOCRIT 37.9 % (37.0-47.0); HEMOGLOBIN 13.2 g/dl (12.0-16.0); LYMPHOCYTES # (AUTO) 0.5 K/uL (0.60-3.4); LYMPHOCYTES % (AUTO) 4.4 (10.0-50.0); MEAN CORPUSCULAR HEMOGLOBIN 33.8 pg (27.0-31.0); MEAN CORPUSCULAR HGB CONC 34.8 (31.8-35.4); MEAN CORPUSCULAR VOLUME 97.2 fl (81.0-99.0); MONOCYTES # (AUTO) 0.3 K/uL (0.4-2.0); MONOCYTES % (AUTO) 3.1 (0-10); NEUTROPHILS % (AUTO) 91.4; PLATELET COUNT 212 10^3/uL (140-440); WHITE BLOOD COUNT 10.89 K/ul (4.6-10.2)
[2017-05-29] MEDS: DUONEB NEB SCH ×4 (05:11→23:23)
[2017-05-29 05:28] LABS: ALBUMIN 2.9 g/dL (3.4-5.0); ALBUMIN/GLOBULIN RATIO 0.97; ANION GAP 13.5; BILIRUBIN,TOTAL 0.39 mg/dL (0.00-1.20); BUN/CREATININE RATIO 43.75; CALCIUM 9.3 mg/dL (8.2-10.2); CREATININE 0.8 mg/dL (0.60-1.30); POTASSIUM 3.5 mmol/L (3.5-5.10); TOTAL PROTEIN 5.9 g/dL (5.8-8.1)
[2017-05-29] MEDS: PROTONIX PO SCH (06:19)
[2017-05-29] MEDS: LASIX TAB PO SCH (06:19)
[2017-05-29] MEDS: SYNTHROID PO SCH (06:19)
[2017-05-29] MEDS: LEVAQUIN 500 MG in PREMIX 100 ML D5W 1 BAG IV SCH (09:06)
[2017-05-29] MEDS: XANAX PO SCH ×3 (09:06→20:45)
[2017-05-29] MEDS: XARELTO PO SCH (09:07)
[2017-05-29] MEDS: MICRO-K CAP PO SCH ×2 (09:07→20:46)
[2017-05-29] MEDS: CELEXA PO SCH (09:07)
[2017-05-29] MEDS: PRAVACHOL PO SCH (09:07)
[2017-05-29] MEDS: COZAAR PO SCH (09:08)
[2017-05-29] MEDS: FOLIC ACID PO SCH (09:08)
[2017-05-29] MEDS: FERROUS SULFATE PO SCH ×2 (09:08→20:46)
[2017-05-29] MEDS: LANOXIN PO SCH (09:08)
[2017-05-29] MEDS: CARDIZEM PO SCH ×4 (09:09→20:46)
[2017-05-29] MEDS: TUSSIONEX PO PRN (09:10)
--- NOTE | 2017-05-29 11:03 | PCM.PROG ---
Attending Provider: ATTENDING PROVIDER: Dr. SERGIO GALEAS DATE OF SERVICE: 05/29/17 SUBJECTIVE: This 86 year old WHITE/ F was hospitalized 05/26/17. The patient is hospitalized with pneumonia and is being treated with IV antibiotics, steroids and nebs treatment. Condition is stable. REVIEW OF SYSTEMS: CONSTITUTIONAL: No night sweats. No fatigue, malaise, lethargy. No fever or chills. HEENT: Eyes: No visual changes. No eye pain. No eye discharge. ENT: No runny nose. No epistaxis. No sinus pain. No odynophagia. No congestion. RESPIRATORY: No cough, no congestion. No hemoptysis. No shortness of breath. CARDIOVASCULAR: No angina symptoms. No CHF symptoms. No atypical chest pain for CAD. No palpitations. No orthopnea.. GASTROINTESTINAL: No abdominal pain. No nausea or vomiting. No diarrhea or constipation. No hematemesis. No hematochezia. GENITOURINARY: No urgency. No frequency. No dysuria. No hematuria. No obstructive symptoms. No discharge. No pain. No significant abnormal bleeding. MUSCULOSKELETAL: No musculoskeletal pain; no joint swelling. NEUROLOGICAL: Awake, alert, confused. No headache. No neck pain. No syncope. No seizures. No dizziness. PSYCHIATRIC: Not anxious. No depression. No suicidal thoughts. No homicidal thoughts. SKIN: No rash. No lesions. No wounds. ENDOCRINE: No unexplained weight loss. No weight gain. HEMATOLOGIC/LYMPHATIC: No anemia. No purpura. No petechiae. No prolonged or excessive bleeding. No palpable lymph nodes. PHYSICAL EXAMINATION: GENERAL: The patient is awake, alert. confused, lying in bed in no distress. VITAL SIGNS: Temperature 98.6 F, Pulse 61, Respiratory Rate 20, BP 150/92, Pulse Ox 98% HEENT: Head normocephalic, atraumatic. Eyes: Extraocular muscles are intact. Pupils are equal, round and reactive to light and accommodation. Ears: No lesions. Nose appeared normal. Throat: No exudate or erythema. NECK: Supple. No JVD, no carotid bruit. No lymphadenopathy or thyromegaly. LUNGS: Decreased breath sounds. Clear to auscultation. Percussion note normal. Chest symmetrical. HEART: S1, S2, no S3. No murmurs. No cyanosis or clubbing. No ascites. Pulses: Dorsalis pedis and posterior tibial pulses +1 to +2 both sides. ABDOMEN: Soft. Non-tender. Bowel sounds active. No CVA tenderness. No mass felt. EXTREMITIES: No pedal edema. Full range of motion of all extremities, equal. NEUROLOGIC: No focal deficit. Cranial nerves II through XII are grossly intact. No headache, no double vision or headache. SKIN: Not dry. Intact. Turgor-normal. LYMPHATIC: No palpable lymph nodes/no lymphedema. MUSCULOSKELETAL: Normal joints with no swelling. Muscle tone is normal. LAB REVIEW: 05/29/17 04:50 05/29/17 04:50 05/29/17 04:50: Sodium 140, Potassium 3.5, Chloride 106, Carbon Dioxide 24, Anion Gap 13.5, BUN 35 H, Creatinine 0.80, Estimated GFR (MDRD) 68.00, BUN/ Creatinine Ratio 43.75, Glucose 197 H, Calcium 9.3, Total Bilirubin 0.39, AST 28 , ALT 26, Alkaline Phosphatase 70, Total Protein 5.9, Albumin 2.9 L, Globulin 3.0, Albumin/Globulin Ratio 0.97 05/29/17 04:50: WBC 10.89 H, RBC 3.90 L, Hgb 13.2, Hct 37.9, MCV 97.2, MCH 33.8 H, MCHC 34.8, RDW Coeff of [place] 12.8, Plt Count 212, Immature Gran % (Auto) 1.0, Neut % (Auto) 91.4, Lymph % (Auto) 4.4 L, [place] % (Auto) 3.1, Eos % (Auto) 0.0, Baso % (Auto) 0.1, Immature Gran # (Auto) 0.1, Neut # 10.0 H, Lymph # 0.5 L, [place] # 0.3 L, Eos # 0.0, Baso # 0.0 ASSESSMENT: 1. PNEUMONIA, STABLE 2. NO CHF PLAN: 1. Continue steroids and IV antibiotics 2. Nebs treatment 3. Tussionex give one teaspoon t.i.d. Plan and coordination of the patient's care discussed in the presence of Credit Analysis Manager and nurse. CONDITION: Stable SCRIBED BY: ARIANNA BASHIR Sales Floor Associate scribed while in presence of service performed by Dr. SERGIO GALEAS on 05/29/17 ([id number])
--- NOTE | 2017-05-29 11:18 | PN ---
DATE OF SERVICE: 05/26/17 REASON FOR HOSPITALIZATION: Pneumonia HISTORY OF PRESENT ILLNESS: 86 year old white female resident of the [facility] has dry chronic cough for past several days. I was called by the Nurse at the [facility] that she would like to have a chest x-ray and I declined that and I said that if the patient needs to have chest x-ray she needs to go and be examined in the [facility] Emergency Room. She was examined and was found to have pneumonia. REVIEW OF SYSTEMS: CONSTITUTIONAL: No night sweats. No fatigue, malaise, lethargy. No fever or chills. HEENT: Eyes: No visual changes. No eye pain. No eye discharge. ENT: No runny nose. No epistaxis. No sinus pain. No sore throat. No odynophagia. No congestion. RESPIRATORY: Cough and congestion. No hemoptysis. Shortness of breath some with exertion. CARDIOVASCULAR: No angina symptoms. No CHF symptoms. No atypical chest pain for CAD. No palpitations. No orthopnea. No PND. No distress. GASTROINTESTINAL: No abdominal pain. No nausea or vomiting. No diarrhea or constipation. No hematemesis. No hematochezia. GENITOURINARY: No urgency. No frequency. No dysuria. No hematuria. No obstructive symptoms. No discharge. No pain. No significant abnormal bleeding. MUSCULOSKELETAL: No musculoskeletal pain; no joint swelling. NEUROLOGICAL: No headache. No neck pain. No syncope. No seizures. No dizziness. PSYCHIATRIC: Not anxious. No depression. No suicidal thoughts. No homicidal thoughts. SKIN: No rash. No lesions. No wounds. ENDOCRINE: No unexplained weight loss. No weight gain. HEMATOLOGIC/LYMPHATIC: No anemia. No purpura. No petechiae. No prolonged or excessive bleeding. No palpable lymph nodes. PHYSICAL EXAMINATION: GENERAL: The patient looks somewhat pale, confused and sleepy. VITAL SIGNS: Temperature 97.5, pulse 66, respiratory rate 20, blood pressure 105/52 and pulse ox 95%. HEENT: Head normocephalic, atraumatic. Eyes: Extraocular muscles are intact. Pupils are equal, round and reactive to light and accommodation. Ears: No lesions. Nose appeared normal. Throat: No exudate or erythema. NECK: Supple. No JVP, no carotid bruit. No lymphadenopathy or thyromegaly. LUNGS: Decreased breath sounds but clear to auscultation. Percussion note normal. Chest symmetrical. HEART: S1, S2, no S3. No murmurs. No cyanosis or clubbing. No ascites. Pulses: Dorsalis pedis and posterior tibial pulses +1 Bilaterally. ABDOMEN: Soft. Nontender. Bowel sounds active. No CVA tenderness. No mass felt. EXTREMITIES: +1 pitting edema. Full range of motion of all extremities, equal. NEUROLOGIC: No focal deficit. Cranial nerves II through XII are grossly intact. No headache, no double vision or headache. SKIN: Not dry. Intact. Turgor - normal. LYMPHATIC: No palpable lymph nodes/no lymphedema. MUSCULOSKELETAL: Normal joints with no swelling. Muscle tone is normal. LABS: Hgb 14.3, hct 40, WBC 10,000 normal differential, creatinine 0.8, BUN 19, potassium 3.8, glucose 227. Chest x-ray; pneumonia. ASSESSMENT: 1. Pneumonia 2. Acute bronchitis 3. Dementia 4. History fo CHF 5. History of coronary artery disease 6. Diabetes Mellitus PLAN: 1. Continue all the medications 2. Give IV Lasix 20mg PO daily 3. Elevate the legs 4. Levofloxacin 500mg PO QAM daily 5. Prednisone 125mg Q 8 hours 6. NEBS treatment The patient has atrial fibrillation and she is on Xarelto CONDITION: Stable. TIME SPENT: More than 30 minutes. Plan and coordination of the patient's care discussed in the presence of nurse. AMIRA
--- NOTE | 2017-05-29 14:53 | HP ---
DATE OF SERVICE: 05/27/17 REASON FOR HOSPITALIZATION/HISTORY OF PRESENT ILLNESS: 86 year old female who resides at [facility]. She was brought in after experiencing some coughing for two days. She has been experiencing some decreased appetite and worsening confusion. She does have a long history of dementia. The patient was subsequently admitted. REVIEW OF SYSTEMS: CONSTITUTIONAL: No night sweats. No fatigue, malaise, lethargy. No fever or chills. Weakness. HEENT: Eyes: No visual changes. No eye pain. No eye discharge. ENT: No runny nose. No epistaxis. No sinus pain. No sore throat. No odynophagia. No ear pain. Nasal congestion. RESPIRATORY: Cough, no congestion. No hemoptysis. Shortness of breath. CARDIOVASCULAR: No angina symptoms. No CHF symptoms. No atypical chest pain for CAD. No palpitations. No orthopnea. GASTROINTESTINAL: No abdominal pain. No nausea or vomiting. No diarrhea or constipation. No hematemesis. No hematochezia. Decreased appetite. GENITOURINARY: No urgency. No frequency. No dysuria. No hematuria. No obstructive symptoms. No discharge. No pain. No significant abnormal bleeding. MUSCULOSKELETAL: No musculoskeletal pain. No joint swelling. No arthritis. Weakness. NEUROLOGICAL: No headache. No neck pain. No syncope. No seizures. No dizziness. Confusion. PSYCHIATRIC: Not anxious. No depression. No suicidal thoughts. No homicidal thoughts. SKIN: No rash. No lesions. No wounds. ENDOCRINE: No unexplained weight loss. No weight gain. HEMATOLOGIC/LYMPHATIC: No anemia. No purpura. No petechiae. No prolonged or excessive bleeding. No palpable lymph nodes. PERSONAL/FAMILY/SOCIAL HISTORY: Family History is unknown. The patient has never smoker, does not use alcohol or any illicit drugs. She resides at [facility]. PAST MEDICAL/SURGICAL PROBLEMS: Hypothyroidism Coronary artery disease Hypertension Atrial fibrillation Anemia GERD Depression Bipolar disorder Dementia with behavior disturbances Osteoarthritis Dyslipidemia Anxiety Appendectomy MEDICATIONS: Aricept 10mg PO bedtime Cardizem LA 120mg Po daily Nitrostat 0.4mg SL Q 5 minutes x3 doses PRN Pravachol 20mg Po daily Catapres 0.1mg PO twice a day Lasix 20mg Po QDAC Xarelto 20mg PO daily Digoxin 0.125mg PO daily Mapap 1,000mg Po twice a day Seroquel 12.5mg Po bedtime Micro-K cap 20 meq PO twice a day Xanax 0.25mg PO three times a day Tylenol 650mg PO Q 8 hours PRN Celexa 40mg Po daily Synthroid 112mcg PO QDAC Folic acid 1mg PO daily Ferrous sulfate 325mg Po twice a day Dexilant 30mg PO daily Cozaar 50mg PO daily ALLERGIES: Haloperidol Penicillin PHYSICAL EXAMINATION: GENERAL: The patient is well appearing and no acute distress, well nourished. VITAL SIGNS: Temperature 98.1, heart rate 62, respiratory 18, blood pressure 101/52 and pulse ox 95%. HEENT: Head normocephalic, atraumatic. Eyes: Extraocular muscles are intact. Pupils are equal, round and reactive to light and accommodation. Ears: No lesions. Nose appeared normal. Throat: No exudate or erythema. NECK: Supple. No JVD, no carotid bruit. No lymphadenopathy or thyromegaly. LUNGS: Bilateral rhonchi with decreased breath sound bilaterally. Percussion note normal. Chest symmetrical. HEART: S1, S2, no S3. No murmurs. No cyanosis or clubbing. No ascites. Pulses: Dorsalis pedis and posterior tibial pulses +1 to +2 both sides. No click or rubs. ABDOMEN: Soft. Nontender. Bowel sounds active times four quadrants. No CVA tenderness. No mass felt. No hepatosplenomegaly. EXTREMITIES: Trace pedal edema. Full range of motion of all extremities, equal. No joint swelling. No calf tenderness or redness. NEUROLOGIC: No focal deficit. Cranial nerves II through XII are grossly intact. No headache, no double vision or headache. The patient is alert and oriented to person however not place and time. SKIN: Dry. Intact. Turgor - normal. Warm. LYMPHATIC: No palpable lymph nodes/no lymphedema. MUSCULOSKELETAL: Normal joints with no swelling. Muscle tone is normal. RADIOLOGICAL: Chest CT shows consolidation ascending to the left hilum to the dependent aspect of the left lower lobe most compatible with pneumonia. Occlusion of multiple left lower airways. This combination could relate aspiration and cardiomegaly. LABS: ABG FiO2 21, pH 7.426, pCO2 42, pO2 61, Base Excess of 3, HCO3 26.7, TCO2 29, O2 92, WBC 10.52, RBC 4.19, hgb 14.3, hct 40.9, plt count 186, sodium 137, potassium 3.8, chloride 101, CO2 23, BUN 19, creatinine 0.86, glucose 227, total bilirubin 0.75, AST 22, ALT 18, total protein 7.1, albumin 3.3, globin 3.8 , Digoxin level 0.9. ASSESSMENT: 1. Left lower lobe pneumonia 2. Possibly aspiration syndrome 3. Cardiomegaly 4. Atrial fibrillation 5. Dyslipidemia PLAN: 1. Will admit to the floor 2. Routine telemetry orders 3. Oxygen as needed PRN 4. Start DUO NEBS Q 6 hours 5. Continue home medications 6. Will put on Levaquin 500mg daily 7. Solu-Medrol 125mg Q 8 hours 8. Continue Xarelto 20mg for atrial fibrillation 9. D5 1/2 normal saline at 75cc an hour 10. CBC and CMP daily 11. Will contact speech therapy regarding consult 12. Will continue to follow closely TIME SPENT: More than 70 minutes. MTDD
--- NOTE | 2017-05-29 15:12 | PN ---
DATE OF SERVICE: 05/28/17 SUBJECTIVE: The patient was seen and examined with the Nurse Practitioner and Butt Trimmer. 86 year old white female hospitalized with pneumonia. Condition seems to be improving clinically. She is not in distress. PHYSICAL EXAMINATION: GENERAL: The patient is confused but alert. HEENT: Head normocephalic, atraumatic. Eyes: Extraocular muscles are intact. Pupils are equal, round and reactive to light and accommodation. Ears: No lesions. Nose appeared normal. Throat: No exudate or erythema. NECK: Supple. No JVD, no carotid bruit. No lymphadenopathy or thyromegaly. LUNGS: Decreased breath sounds but clear to auscultation. Percussion note normal. Chest symmetrical. HEART: S1, S2, no S3. No murmurs. No cyanosis or clubbing. No ascites. Pulses: Dorsalis pedis and posterior tibial pulses +1 to +2 both sides. ABDOMEN: Soft. Nontender. Bowel sounds active. No CVA tenderness. No mass felt. EXTREMITIES: No edema. Full range of motion of all extremities, equal. NEUROLOGIC: No focal deficit. Cranial nerves II through XII are grossly intact. No headache, no double vision or headache. SKIN: Not dry. Intact. Turgor - normal. LYMPHATIC: No palpable lymph nodes/no lymphedema. MUSCULOSKELETAL: Normal joints with no swelling. Muscle tone is normal. ASSESSMENT: 1. Pneumonia PLAN: 1. Give Tussionex because of dry cough she has 2. Will do Echocardiogram today or tomorrow to evaluate LV function. CONDITION: Stable TIME SPENT: More than 30 minutes. Plan and coordination of the patient's care discussed in the presence of nurse. AMIRA
[2017-05-29] MEDS ORDERED: TUSSIONEX PO STA (16:11)
[2017-05-29] MEDS: PREDNISONE PO SCH (17:52)
[2017-05-29] MEDS: SEROQUEL PO SCH (20:44)
[2017-05-29] MEDS: ARICEPT PO SCH (20:45)
[2017-05-29] MEDS: TUSSIONEX PO SCH (20:55)
[2017-05-29] MEDS ORDERED: TUSSIONEX PO SCH ×2 (21:00)
[2017-05-30] MEDS: SODIUM CHLORIDE 1,000 ML IV SCH (03:39)
[2017-05-30] MEDS: DUONEB NEB SCH ×4 (05:12→22:39)
[2017-05-30 05:25] LABS: BASOPHILS % (AUTO) 0.2 % (0.0-3.0); HEMATOCRIT 36.4 % (37.0-47.0); HEMOGLOBIN 12.5 g/dl (12.0-16.0); IMMATURE GRANULOCYTE % (AUTO) 1.5 % (0.0-5.0); LYMPHOCYTES # (AUTO) 0.4 K/uL (0.60-3.4); LYMPHOCYTES % (AUTO) 3.3 (10.0-50.0); MEAN CORPUSCULAR HEMOGLOBIN 33.6 pg (27.0-31.0); MEAN CORPUSCULAR HGB CONC 34.3 (31.8-35.4); MEAN CORPUSCULAR VOLUME 97.8 fl (81.0-99.0); MONOCYTES # (AUTO) 0.6 K/uL (0.4-2.0); MONOCYTES % (AUTO) 4.7 (0-10); NEUTROPHILS # (AUTO) 10.6 K/ul (2.0-6.9); NEUTROPHILS % (AUTO) 90.3; PLATELET COUNT 195 10^3/uL (140-440); RED BLOOD COUNT 3.72 10^6/ul (4.20-5.40); WHITE BLOOD COUNT 11.75 K/ul (4.6-10.2)
[2017-05-30 05:43] LABS: ALBUMIN 2.6 g/dL (3.4-5.0); ALBUMIN/GLOBULIN RATIO 0.96; ANION GAP 12.5; BILIRUBIN,TOTAL 0.39 mg/dL (0.00-1.20); BUN/CREATININE RATIO 46.05; CALCIUM 8.5 mg/dL (8.2-10.2); CREATININE 0.76 mg/dL (0.60-1.30); POTASSIUM 3.5 mmol/L (3.5-5.10); TOTAL PROTEIN 5.3 g/dL (5.8-8.1)
[2017-05-30] MEDS: LASIX TAB PO SCH (05:52)
[2017-05-30] MEDS: SYNTHROID PO SCH (05:52)
[2017-05-30] MEDS: PROTONIX PO SCH (05:52)
--- NOTE | 2017-05-30 09:03 | ECHO2D ---
Date of Exam: 05/29/17 Ordering Physician: SERGIO GALEAS Room #: [id number] Reason for Echo: ATRIAL FIBRILLATION M-Mode Normal Adult Results LV Dimensions Normal Adult Results AoV Opening excursions >1.6 >1.6 LVEDD-base- 3.5-5.8 4.9 Ao root dimensions 2.0-3.7 3.4 LVESD-base- 3.1-4.6 L. Atrium dimensions 1.9-3.8 6.3 Post. Wall thickness 0.8-1.1 1.2 IV septum (thickness) 0.7-1.2 1.2 Post. Wall excursion 0.72-1.3 NORMAL Septal motion NORMAL Systolic motion R. Ventricular cavity 1.5-2.0 NORMAL LVEF 60% 60% Paradoxical septal wall motion NORMAL 2-D : NORMAL LEFT VENTRICULAR CONTRACTILITY--NORMAL VALVES--ENLARGED LEFT ATRIAL CAVITY, NO EFFUSION, NO THROMBUS, NORMAL LEFT VENTRICLE SIZE M-MODE: MV: NORMAL AV: NORMAL TV: NORMAL PV: CHAMBER SIZE: ENLARGED LEFT ATRIAL CAVITY WALL MOTION: NORMAL PERICARDIUM: NORMAL INTERPRETATION: 1. BORDERLINE LEFT VENTRICULAR HYPERTROPHY WITH ENLARGED LEFT ATRIAL CAVITY 2. NORMAL LEFT VENTRICULAR CONTRACTILITY 3. NORMAL VALVES MTDD
--- NOTE | 2017-05-30 09:07 | PCM.PROG ---
Attending Provider: ATTENDING PROVIDER: Dr. SERGIO GALEAS DATE OF SERVICE: 05/30/17 SUBJECTIVE: This 86 year old WHITE/ F was hospitalized 05/26/17. The patient is seen with Roro, Nurse Practitioner. The patient is lying in bed, alert, still coughing. No fever. She has been eating 25 to 75% of her meals. REVIEW OF SYSTEMS: CONSTITUTIONAL: Confusion. No night sweats. No fever or chills. HEENT: Eyes: No visual changes. No eye pain. No eye discharge. ENT: No runny nose. No epistaxis. No sinus pain. No odynophagia. No congestion. RESPIRATORY: Cough and congestion. No hemoptysis. No shortness of breath. CARDIOVASCULAR: No angina symptoms. No CHF symptoms. No atypical chest pain for CAD. No palpitations. No orthopnea.. GASTROINTESTINAL: No abdominal pain. No nausea or vomiting. No diarrhea or constipation. No hematemesis. No hematochezia. GENITOURINARY: No urgency. No frequency. No dysuria. No hematuria. No obstructive symptoms. No discharge. No pain. No significant abnormal bleeding. MUSCULOSKELETAL: No musculoskeletal pain; no joint swelling. NEUROLOGICAL: Awake, alert, confused. No headache. No neck pain. No syncope. No seizures. No dizziness. PSYCHIATRIC: Not anxious. No depression. No suicidal thoughts. No homicidal thoughts. SKIN: No rash. No lesions. No wounds. ENDOCRINE: No unexplained weight loss. No weight gain. HEMATOLOGIC/LYMPHATIC: No anemia. No purpura. No petechiae. No prolonged or excessive bleeding. No palpable lymph nodes. PHYSICAL EXAMINATION: GENERAL: The patient is awake, alert, confused lying in bed in no distress. VITAL SIGNS: Temperature 98.0 F, Pulse 74, Respiratory Rate 20, BP 119/75, Pulse Ox 95% HEENT: Head normocephalic, atraumatic. Eyes: Extraocular muscles are intact. Pupils are equal, round and reactive to light and accommodation. Ears: No lesions. Nose appeared normal. Throat: No exudate or erythema. NECK: Supple. No JVD, no carotid bruit. No lymphadenopathy or thyromegaly. LUNGS: Diminished breath sounds bilaterally. Clear to auscultation. Percussion note normal. Chest symmetrical. HEART: Irregular heart rate. S1, S2, no S3. No murmurs. No cyanosis or clubbing. No ascites. Pulses: Dorsalis pedis and posterior tibial pulses +1 to +2 both sides. ABDOMEN: Soft. Non-tender. Bowel sounds active. No CVA tenderness. No mass felt. EXTREMITIES: No edema. Full range of motion of all extremities, equal. NEUROLOGIC: No focal deficit. Cranial nerves II through XII are grossly intact. No headache, no double vision or headache. SKIN: Not dry. Intact. Turgor-normal. LYMPHATIC: No palpable lymph nodes/no lymphedema. MUSCULOSKELETAL: Normal joints with no swelling. Muscle tone is normal. LAB REVIEW: 05/30/17 04:00 05/30/17 04:00 05/30/17 04:00: Sodium 144, Potassium 3.5, Chloride 110 H, Carbon Dioxide 25, Anion Gap 12.5, BUN 35 H, Creatinine 0.76, Estimated GFR (MDRD) 72.00, BUN/ Creatinine Ratio 46.05, Glucose 181 H, Calcium 8.5, Total Bilirubin 0.39, AST 29 , ALT 39, Alkaline Phosphatase 60, Total Protein 5.3 L, Albumin 2.6 L, Globulin 2.7, Albumin/Globulin Ratio 0.96 05/30/17 04:00: WBC 11.75 H, RBC 3.72 L, Hgb 12.5, Hct 36.4 L, MCV 97.8, MCH 33.6 H, MCHC 34.3, RDW Coeff of [place] 12.7, Plt Count 195, Immature Gran % (Auto) 1.5, Neut % (Auto) 90.3, Lymph % (Auto) 3.3 L, [place] % (Auto) 4.7, Eos % (Auto) 0.0, Baso % (Auto) 0.2, Immature Gran # (Auto) 0.2, Neut # 10.6 H, Lymph # 0.4 L , [place] # 0.6, Eos # 0.0, Baso # 0.0 ASSESSMENT: 1. PNEUMONIA, STABLE 2. DEMENTIA PLAN: 1. Repeat chest x-ray today 2. D/C IV fluids Plan and coordination of the patient's care discussed in the presence of Music Therapist and nurse. CONDITION: STABLE SCRIBED BY: Corey JACKSON scribed while in presence of service performed by Dr. SERGIO GALEAS/RORO LOVE APRN on 05/30/17 ([id number])
[2017-05-30] MEDS: LEVAQUIN 500 MG in PREMIX 100 ML D5W 1 BAG IV SCH (09:23)
[2017-05-30] MEDS: TUSSIONEX PO SCH ×2 (09:23→22:24)
[2017-05-30] MEDS: MICRO-K CAP PO SCH ×2 (09:25→22:25)
[2017-05-30] MEDS: LANOXIN PO SCH (09:25)
[2017-05-30] MEDS: COZAAR PO SCH (09:25)
[2017-05-30] MEDS: CELEXA PO SCH (09:25)
[2017-05-30] MEDS: XARELTO PO SCH (09:25)
[2017-05-30] MEDS: CARDIZEM PO SCH ×4 (09:26→22:25)
[2017-05-30] MEDS: PREDNISONE PO SCH ×2 (09:26→18:35)
[2017-05-30] MEDS: FERROUS SULFATE PO SCH ×2 (09:26→22:25)
[2017-05-30] MEDS: FOLIC ACID PO SCH (09:26)
[2017-05-30] MEDS: XANAX PO SCH ×3 (09:27→22:24)
[2017-05-30] MEDS: PRAVACHOL PO SCH (09:27)
--- NOTE | 2017-05-30 14:45 | DI ---
EXAM: Single frontal view of the chest HISTORY: Cough. COMPARISON: Chest x-ray 10/06/[address] chest 05/26/2017 FINDINGS: Cardiomediastinal silhouette is mildly enlarged and unchanged. There is no pneumothorax or pleural effusion. There is no consolidation, nodule or mass. There is a calcified granuloma in the right. The consolidation noted in the left lung on prior CT is not identified on today's exam. IMPRESSION: 1. Left lower lobe consolidation seen on prior CT is not identified on today's exam. 2. Cardiomegaly.
[2017-05-30] MEDS: SEROQUEL PO SCH (22:24)
[2017-05-30] MEDS: ARICEPT PO SCH (22:25)
[2017-05-31 04:50] LABS: BASOPHILS % (AUTO) 0.3 % (0.0-3.0); HEMATOCRIT 39.4 % (37.0-47.0); HEMOGLOBIN 13.9 g/dl (12.0-16.0); IMMATURE GRANULOCYTE % (AUTO) 3.2 % (0.0-5.0); LYMPHOCYTES # (AUTO) 0.9 K/uL (0.60-3.4); LYMPHOCYTES % (AUTO) 8.8 (10.0-50.0); MEAN CORPUSCULAR HEMOGLOBIN 33.7 pg (27.0-31.0); MEAN CORPUSCULAR HGB CONC 35.3 (31.8-35.4); MEAN CORPUSCULAR VOLUME 95.6 fl (81.0-99.0); MONOCYTES # (AUTO) 0.9 K/uL (0.4-2.0); MONOCYTES % (AUTO) 8.9 (0-10); NEUTROPHILS # (AUTO) 8.3 K/ul (2.0-6.9); NEUTROPHILS % (AUTO) 78.8; PLATELET COUNT 205 10^3/uL (140-440); RED BLOOD COUNT 4.12 10^6/ul (4.20-5.40); WHITE BLOOD COUNT 10.49 K/ul (4.6-10.2)
[2017-05-31] MEDS: DUONEB NEB SCH ×2 (04:58→11:20)
[2017-05-31 05:10] LABS: ALBUMIN 2.8 g/dL (3.4-5.0); ALBUMIN/GLOBULIN RATIO 1.04; ANION GAP 11.7; BILIRUBIN,TOTAL 0.57 mg/dL (0.00-1.20); BUN/CREATININE RATIO 27.77; CALCIUM 8.7 mg/dL (8.2-10.2); CREATININE 0.72 mg/dL (0.60-1.30); POTASSIUM 3.7 mmol/L (3.5-5.10); TOTAL PROTEIN 5.5 g/dL (5.8-8.1)
[2017-05-31] MEDS: PROTONIX PO SCH (05:36)
[2017-05-31] MEDS: LASIX TAB PO SCH (05:37)
[2017-05-31] MEDS: SYNTHROID PO SCH (05:37)
[2017-05-31] MEDS: XANAX PO SCH (09:00)
--- NOTE | 2017-05-31 10:31 | PCM.PROG ---
Attending Provider: ATTENDING PROVIDER: Dr. SERGIO AGUILAR This patient is seen with Roro Vargas Nurse Practioner DATE OF SERVICE: 05/31/17 SUBJECTIVE: This 86 year old WHITE/ F was hospitalized 05/26/17. Lying in bed resting comfortably. The repeat chest x-ray yesterday showed no pneumonia. She has been eating well. REVIEW OF SYSTEMS: CONSTITUTIONAL: No night sweats. No fatigue, malaise, lethargy. No fever or chills. HEENT: Eyes: No visual changes. No eye pain. No eye discharge. ENT: No runny nose. No epistaxis. No sinus pain. No odynophagia. No congestion. RESPIRATORY: Cough and congestion. No hemoptysis. No shortness of breath. CARDIOVASCULAR: No angina symptoms. No CHF symptoms. No atypical chest pain for CAD. No palpitations. No orthopnea.. GASTROINTESTINAL: No abdominal pain. No nausea or vomiting. No diarrhea or constipation. No hematemesis. No hematochezia. GENITOURINARY: No urgency. No frequency. No dysuria. No hematuria. No obstructive symptoms. No discharge. No pain. No significant abnormal bleeding. MUSCULOSKELETAL: No musculoskeletal pain; no joint swelling. NEUROLOGICAL: Confusion due to dementia. No headache. No neck pain. No syncope. No seizures. No dizziness. PSYCHIATRIC: Not anxious. No depression. No suicidal thoughts. No homicidal thoughts. SKIN: No rash. No lesions. No wounds. ENDOCRINE: No unexplained weight loss. No weight gain. HEMATOLOGIC/LYMPHATIC: No anemia. No purpura. No petechiae. No prolonged or excessive bleeding. No palpable lymph nodes. PHYSICAL EXAMINATION: GENERAL: The patient is sleepy, resting comfortably in bed in no distress. VITAL SIGNS: Temperature 98.3 F, Pulse 71, Respiratory Rate 20, BP 156/70, Pulse Ox 96% HEENT: Head normocephalic, atraumatic. Eyes: Extraocular muscles are intact. Pupils are equal, round and reactive to light and accommodation. Ears: No lesions. Nose appeared normal. Throat: No exudate or erythema. NECK: Supple. No JVD, no carotid bruit. No lymphadenopathy or thyromegaly. LUNGS: Diminished breath sounds bilaterally. Clear to auscultation. Percussion note normal. Chest symmetrical. HEART: S1, S2, no S3. No murmurs. No cyanosis or clubbing. No ascites. Pulses: Dorsalis pedis and posterior tibial pulses +1 to +2 both sides. ABDOMEN: Soft. Non-tender. Bowel sounds active. No CVA tenderness. No mass felt. EXTREMITIES: No edema. Full range of motion of all extremities, equal. NEUROLOGIC: Confusion due to dementia. No focal deficit. Cranial nerves II through XII are grossly intact. No headache, no double vision or headache. SKIN: Not dry. Intact. Turgor-normal. LYMPHATIC: No palpable lymph nodes/no lymphedema. MUSCULOSKELETAL: Normal joints with no swelling. Muscle tone is normal. LAB REVIEW: 05/31/17 04:30 05/31/17 04:30 05/31/17 04:30: Sodium 137, Potassium 3.7, Chloride 101, Carbon Dioxide 28, Anion Gap 11.7, BUN 20 H, Creatinine 0.72, Estimated GFR (MDRD) 77.00, BUN/ Creatinine Ratio 27.77, Glucose 134 H, Calcium 8.7, Total Bilirubin 0.57, AST 25 , ALT 39, Alkaline Phosphatase 66, Total Protein 5.5 L, Albumin 2.8 L, Globulin 2.7, Albumin/Globulin Ratio 1.04 05/31/17 04:30: WBC 10.49 H, RBC 4.12 L, Hgb 13.9, Hct 39.4, MCV 95.6, MCH 33.7 H, MCHC 35.3, RDW Coeff of [place] 12.4, Plt Count 205, Immature Gran % (Auto) 3.2, Neut % (Auto) 78.8, Lymph % (Auto) 8.8 L, [place] % (Auto) 8.9, Eos % (Auto) 0.0, Baso % (Auto) 0.3, Immature Gran # (Auto) 0.3, Neut # 8.3 H, Lymph # 0.9, [place] # 0.9, Eos # 0.0, Baso # 0.0 ASSESSMENT: 1. PNEUMONIA, RESOLVED 2. DEMENTIA PLAN: 1. Discharge to [place] 2. Levaquin 500 mg times two days p.o. 3. Prednisone 10 mg b.i.d. times three days 4. Duonebs b.i.d. times 7 days 5. Vital signs daily times one week 6. Repeat CBC and CMP in one week Plan and coordination of the patient's care discussed in the presence of Rn Outpatient Surgery and nurse. CONDITION: Stable SCRIBED BY: ARIANNA BASHIR Military Police Officer scribed while in presence of service performed by Dr. Aguilar/ROXANA Kincaid on 05/31/17 ([id number])
[2017-05-31] MEDS: LEVAQUIN 500 MG in PREMIX 100 ML D5W 1 BAG IV SCH ×2 (10:40→10:43)
[2017-05-31] MEDS: FOLIC ACID PO SCH (10:54)
[2017-05-31] MEDS: PREDNISONE PO SCH (10:55)
[2017-05-31] MEDS: PRAVACHOL PO SCH (10:55)
[2017-05-31] MEDS: FERROUS SULFATE PO SCH (10:55)
[2017-05-31] MEDS: XARELTO PO SCH (10:55)
[2017-05-31] MEDS: CARDIZEM PO SCH ×2 (10:55→10:56)
[2017-05-31] MEDS: MICRO-K CAP PO SCH (10:56)
[2017-05-31] MEDS: LANOXIN PO SCH (10:56)
[2017-05-31] MEDS: CELEXA PO SCH (10:56)
[2017-05-31] MEDS: COZAAR PO SCH (10:56)
[2017-05-31] MEDS: TUSSIONEX PO SCH (11:12)
--- NOTE | 2017-05-31 11:13 | CM.DICTOOL ---
ADMISSION: 05/26/17 11:33 DISCHARGE: May 31, 2017 DATE OF SERVICE: 05/31/17 FINAL DIAGNOSIS Pneumonia Hypertension Dementia Atrial Fibrillation, on Xarelto VT by history CAD Cardiomegaly Hypothyroid Osteoarthritis Osteoporosis DDD, cervical and thoracic spine Diverticulosis GERD Bipolar Disease Cholecystectomy Appendectomy Bilateral TKR LAST VITALS Temp Pulse Resp BP Pulse Ox 98.3 F 71 20 156/70 H 96 05/31/17 05:28 05/31/17 05:28 05/31/17 05:28 05/31/17 05:28 05/31/17 05:28 ACTIVE HOME MEDICATIONS Acetaminophen (Tylenol) 1000 mg BID Alprazolam (Xanax) 0.25 mg PO TID [facility] Last Admin: 05/30/17 22:24 Dose: 0.25 mg Citalopram Hydrobromide (Celexa) 40 mg PO DAILY [facility] Last Admin: 05/30/17 09:25 Dose: 40 mg Digoxin (Lanoxin) 125 mcg PO DAILY [facility] Last Admin: 05/30/17 09:25 Dose: 125 mcg Diltiazem HCl (Cardizem) 30 mg PO BID [facility] Last Admin: 05/30/17 22:25 Dose: 30 mg Diltiazem HCl (Cardizem) 60 mg PO BID [facility] Last Admin: 05/30/17 22:25 Dose: 60 mg Donepezil HCl (Aricept) 10 mg PO BEDTIME [facility] Last Admin: 05/30/17 22:25 Dose: 10 mg Ferrous Sulfate (Ferrous Sulfate) 324 mg PO BID [facility] Last Admin: 05/30/17 22:25 Dose: 324 mg Folic Acid (Folic Acid) 1 mg PO DAILY [facility] Last Admin: 05/30/17 09:26 Dose: 1 mg Furosemide (Lasix Tab) 20 mg PO QDAC [facility] Last Admin: 05/31/17 05:37 Dose: 20 mg Levothyroxine Sodium (Synthroid) 112 mcg PO QDAC [facility] Last Admin: 05/31/17 05:37 Dose: 112 mcg Losartan Potassium (Cozaar) 50 mg PO DAILY [facility] Last Admin: 05/30/17 09:25 Dose: 50 mg Nitroglycerin (Nitrostat) 0.4 mg SL Q5MIN X 3 DOSES PRN PRN Reason: Angina Dexilant 30 mg Daily [facility] Last Admin: Potassium Chloride (Micro-K Cap) 20 meq PO BID [facility] Last Admin: 05/30/17 22:25 Dose: 20 meq Pravastatin Sodium (Pravachol) 20 mg PO DAILY [facility] Last Admin: 05/30/17 09:27 Dose: 20 mg Quetiapine Fumarate (Seroquel) 12.5 mg PO BEDTIME [facility] Last Admin: 05/30/17 22:24 Dose: 12.5 mg Rivaroxaban (Xarelto) 20 mg PO DAILY [facility] Last Admin: 05/30/17 09:25 Dose: 20 mg Clonidine 0.1 mg BID [facility] Last Admin: ALLERGIES haloperidol [From Haldol] Adverse Reaction (Verified 05/26/17 10:13) Penicillins Adverse Reaction (Verified 05/26/17 10:12) NEW PRESCRIPTIONS: Duonebs BID for 7 days Levaquin 500 mg Daily for 2 days Prednisone 10 mg BID with meals for 3 days SMOKING: Not Applicable DISEASE SPECIFIC EDUCATION: Not Applicable due to patient confusion LAB REVIEW: 05/31/17 04:30 05/31/17 04:30 05/31/17 04:30: Sodium 137, Potassium 3.7, Chloride 101, Carbon Dioxide 28, Anion Gap 11.7, BUN 20 H, Creatinine 0.72, Estimated GFR (MDRD) 77.00, BUN/ Creatinine Ratio 27.77, Glucose 134 H, Calcium 8.7, Total Bilirubin 0.57, AST 25 , ALT 39, Alkaline Phosphatase 66, Total Protein 5.5 L, Albumin 2.8 L, Globulin 2.7, Albumin/Globulin Ratio 1.04 05/31/17 04:30: WBC 10.49 H, RBC 4.12 L, Hgb 13.9, Hct 39.4, MCV 95.6, MCH 33.7 H, MCHC 35.3, RDW Coeff of [place] 12.4, Plt Count 205, Immature Gran % (Auto) 3.2, Neut % (Auto) 78.8, Lymph % (Auto) 8.8 L, [place] % (Auto) 8.9, Eos % (Auto) 0.0, Baso % (Auto) 0.3, Immature Gran # (Auto) 0.3, Neut # 8.3 H, Lymph # 0.9, [place] # 0.9, Eos # 0.0, Baso # 0.0 PLAN: Discharge to [facility] Diet: CLOVER, Mechanical Soft with nectar thick liquids Patient to be upright with all meals and for at least 30 minutes after meals Activity: Up to dining room for meals at least 2 times daily Turn every 2 hours Physical Therapy evaluation Speech Therapy evaluation Medication change: Cardizem has been changed to 90 mg BID Oxygen at 2 liters per cannula prn oxygen saturation below 90% Turn every 2 hours Decubitus precautions Incontinent care CBC, CMP in one week, then monthly VItal Signs daily for 7 days Oxygen Saturation daily for 7 days ELI hose from 6 am -9 pm daily Elevate legs when in bed and when up in chair Ms. Samaniego is alert to person. She is disoriented to time and place. She requires total assistance for feeding, bathing and transfers. She requires assistance of 2 staff members for transfer from bed to chair. She is incontinent of bladder and bowel. Skin is intact and free of decubitus ulcers or rashes. Uriel Aguilar MD Roro Vargas APRN
[2017-05-31 11:23] VITALS: BP 144/60; TEMP 98.4
[2017-05-31] MEDS ORDERED: LEVAQUIN PO STA (11:32)
--- NOTE | 2017-06-13 09:40 | DS ---
DATE OF SERVICE: 05/31/17 FINAL DIAGNOSIS: 1. PNEUMONIA 2. HYPERTENSION 3. DEMENTIA 4. ATRIAL FIBRILLATION, ON XARELTO 5. NC BY HISTORY 6. CAD 7. CARDIOMEGALY 8. HYPOTHYROID 9. OSTEOARTHRITIS 10. OSTEOPOROSIS 11. DDD, CERVICAL AND THORACIC SPINE 12. DIVERTICULOSIS 13. GERD 14. BIPOLAR DISEASE 15. CHOLECYSTECTOMY 16. APPENDECTOMY 17. BILATERAL TKR DISCHARGE INSTRUCTIONS: 1. Discharge to [facility] 2. Oxygen 2L/cannula p.r.n. oxygen saturation below 90% 3. Turn every 2 hours 4. Decubitus precautions 5. Incontinent care 6. CBC, CMP in one week then monthly 7. Vital signs daily for 7 days 8. Oxygen saturation daily for 7 days 9. ELI hose from 6 a.m. to 9 p.m. daily 10. Elevate legs when in bed and when up in chair 11. The patient will be followed closely at the detention MEDICATIONS AT DISCHARGE: 1. Acetaminophen (Tylenol) 44350 mg b.i.d. 2. Alprazolam (Xanax) 0.25 mg p.o. t.i.d. [facility] 3. Citalopram Hydrobromide (Celexa) 40 mg p.o. daily [facility] 4. Digoxin (Lanoxin) 125 mcg p.o. daily [facility] 5. Diltiazem (Cardizem) 30 mg p.o. b.i.d. [facility] 6. Diltiazem (Cardizem) 60 mg p.o. b.i.d. [facility] 7. Donepezil (Aricept) 10 mg p.o. bedtime [facility] 8. Ferrous Sulfate 324 mg p.o. b.i.d. [facility] 9. Folic Acid 1 mg p.o. daily [facility] 10. Furosemide (Lasix) 20 mg p.o. q.d a.c. [facility] 11. Levothyroxine (Synthroid) 112 mcg p.o. q.d a.c. [facility] 12. Losartan (Cozaar) 50 mg p.o. daily [facility] 13. Nitroglycerin 0.4 mg SL q.5 min times three doses p.r.n. 14. Dexilant 30 mg daily [facility] 15. Potassium Chloride (Micro K Cap) 20 mEq p.o. b.i.d. [facility] 16. Pravastatin (Pravachol) 20 mg p.o. daily [facility] 17. Quetiapine (Seroquel) 12.5 mg p.o. bedtime [facility] 18. Rivroxaban (Xarelto) 20 mg p.o. daily [facility] 19. Clonidine 0.1 mg b.i.d. [facility] MEDICATION CHANGE: Cardizem has been changed to 90 mg b.i.d. NEW PRESCRIPTIONS: 1. Duonebs b.i.d. for 7 days 2. Levaquin 500 mg daily for 2 days 3. Prednisone 10 mg b.i.d. with meals for 3 days DIET INSTRUCTIONS: CLOVER, mechanical soft with nectar thick liquids. Patient is to be upright with all meals and for at least 30 minutes after meals. ACTIVITY: Up to dining room for meals at least two times daily. Turn every 2 hours. Physical Therapy evaluation and Speech Therapy evaluation. SMOKING: N/A DISEASE SPECIFIC EDUCATION: N/A due to patient confusion HOSPITAL COURSE: This is an 86-year-old female who was brought in from [facility] with decreased appetite, low grade temperature and coughing. It was found that she had pneumonia via CT scan, left lower lobe. It was questionable whether this was aspiration pneumonia. She was on nectar thick liquids and mechanical soft diet at the detention. Speech consult was performed and they state that the patient chews their food well, they do not think she is a risk for aspiration. She was admitted, placed on IV Levaquin 500 mg daily and started on Solu-Cortef 125 mg q.8hr. We also started her on Duonebs q.6hr breathing treatments. She was given oxygen p.r.n. as needed. Her white count was slightly elevated on admission but is significantly improved today on day of discharge. She had a repeat chest x-ray yesterday which showed no consolidation in the left lower lobe. She has been eating well the past two days. She has been more alert, less agitated. She was placed on routine telemetry. She does have a history of atrial fibrillation which telemetry shows. For this she is on Xarelto 20 mg daily. We have continued all of her home medications. She has done well. We were giving her Tussionex p.o. as needed for the cough. Today, vital signs are stable: Temperature 98.3, heart rate 71, respirations 20 , BP 156/70, pulse ox 96% on room air. She has been afebrile since admission. Her labs again have significantly improved. Today white count 10.49, hemoglobin 13.9, hematocrit 39.4. Sodium 137, potassium 3.7, BUN 20 and creatinine 0.72. She will be discharged back to [facility] on Levaquin 500 mg p.o. daily for the next three days to complete a 7 day course along with Prednisone 10 mg b.i.d. for the next three days. We will continue on Duonebs b.i.d. for the next week. She will have vital signs daily for one week along with CBC in one week. She will continue with nectar thick liquids and mechanical soft diet at the detention along with keeping her upright 30 minutes after meals. We will follow her closely at the detention. TIME SPENT: More than 60 minutes. AMIRA
== END 2017-05-31 13:05 | DRG 194 ==
LOC: ED 09:54 → MEDSURG A 11:33
PROVIDERS: ADMIT Internal Medicine; ATTEND Internal Medicine
DX: J18.1 Lobar pneumonia, unspecified organism (principal); F03.91 Unspecified dementia, unspecified severity, with behavioral disturbance; R05 Cough; I48.91 Unspecified atrial fibrillation; I51.7 Cardiomegaly; E11.9 Type 2 diabetes mellitus without complications; I10 Essential (primary) hypertension; I25.2 Old myocardial infarction; I25.10 Atherosclerotic heart disease of native coronary artery without angina pectoris; E03.9 Hypothyroidism, unspecified; M19.90 Unspecified osteoarthritis, unspecified site; M81.0 Age-related osteoporosis without current pathological fracture; M50.30 Other cervical disc degeneration, unspecified cervical region; M51.34 Other intervertebral disc degeneration, thoracic region; F31.9 Bipolar disorder, unspecified; Y95 Nosocomial condition; R60.0 Localized edema; E87.6 Hypokalemia; Z79.01 Long term (current) use of anticoagulants; Z86.79 Personal history of other diseases of the circulatory system; Z79.899 Other long term (current) drug therapy
CPT/HCPCS: 36415; 80053; 80162; 82550; 82803; 82962; 83880; 84439; 84443; 84484; 85025; 87040; 87081; 93005; 93010; 94640; 96374; 97802; 99223; 99232; 99239; 99284

== ENCOUNTER 2017-11-01 13:12 | Outpatient (CLI) | END 2017-11-01 13:13 | disposition home or self-care (01) | LOC: LAB 13:12 | PROVIDERS: ATTEND Internal Medicine | DX: R68.89 Other general symptoms and signs (principal) | CPT/HCPCS: 87502 ==

== ENCOUNTER 2018-03-05 13:29 | Outpatient (CLI) | END 2018-03-05 13:30 | disposition home or self-care (01) | LOC: NONPT 13:29 | PROVIDERS: ATTEND Emergency Medicine | DX: Z51.81 Encounter for therapeutic drug level monitoring (principal); Z79.899 Other long term (current) drug therapy | CPT/HCPCS: 84439; 84443 ==

== ENCOUNTER 2018-09-03 14:08 | Inpatient (IN) ==
--- NOTE | 2018-09-03 15:17 | CT ---
EXAM: CT chest without contrast HISTORY: Chest bruising COMPARISON: CT humorous same day and CT chest 05/26/2017 TECHNIQUE: Serial axial images of the chest were obtained from the lung apices to the upper abdomen without contrast. These were viewed in multiple planes. FINDINGS: The thyroid is normal. There is mild scattered atherosclerotic disease throughout the aor ta. The heart is enlarged without pericardial fluid. There is no mediastinal or hilar lymphadenopat hy. The axillary lymph nodes are not enlarged. There is no pneumothorax or pleural effusion. There is calcified granuloma in the right middle lobe. There is minimal left basilar atelectasis. There is no consolidation, nodule or mass otherwise bita ntified. There is mild right basilar atelectasis. The osseous structures demonstrate no displaced rib fracture with kyphosis and multilevel degenerativ e disease of the spine. There is prominent soft tissue increased attenuation within the left biceps muscle. Limited views. The soft tissues in the upper abdomen demonstrate prior cholecystectomy. IMPRESSION: 1. No acute cardiopulmonary process with mild atelectasis. 2. Cardiomegaly without pericardial fluid. 3. No displaced rib fractures are identified. There is increased attenuation in the soft tissues of the left biceps musculature. This is better evaluated on the same day CT left humerus. This may re present a muscular hematoma.
--- NOTE | 2018-09-03 15:22 | CT ---
EXAM: CT of the left humerus without contrast History: Left arm trauma. Technique: Multiplanar CT images through the left humerus were obtained without the administration o f IV contrast Findings: Osteopenia. No acute fracture or dislocation. Moderate to severe narrowing of the right glenohumeral joint with marginal sclerosis and osteophyte formation. High-riding humeral head. 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 Impression: 1. No acute osseous abnormality. 2. Moderate to severe osteoarthritis of the left glenohumeral joint. 3. High-riding humeral head compatible with chronic rotator cuff disease. 4. 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
--- NOTE | 2018-09-03 15:39 | CT ---
Exam: CT left forearm without intravenous contrast. Comparison: CT left humerus performed on the same day. Reason for exam: Bruised FINDINGS: Image interpretation is significantly limited by metallic streak artifact from plate and s crew fixation of the distal humerus. There is an apparent fracture of the olecranon and radial head. The mid shaft and distal radius appear grossly unremarkable. Image interpretation limited by osseous demineralization. The distal radius and ulna are not well se en on the exam. Impression: 1. Significantly limited evaluation secondary to plate and screw fixation of the distal humerus with metallic streak artifact. Apparent fracture of the olecranon and radial head. Recommend x-rays for further characterization. 2. The distal radius and ulna are not well evaluated on the exam. Consider wrist x-rays for further characterization.
--- NOTE | 2018-09-03 16:33 | ED.PDOC ---
General ED Provider: Dr. HARRIS HUFF Chief Complaint: Non-specific Complaint Stated Complaint: bilateral lower leg pain Time Seen by Physician: 14:19 Mode of Arrival: Stretcher Information Source: Patient Exam Limitations: No limitations Primary Care Provider: SERGIO GALEAS Nursing and Triage Documentation Reviewed and Agree: Yes Does patient meet sepsis criteria?: No If yes, has appropriate treatment been initiated?: No System Inflammatory Response Syndrome: Not Applicable Sepsis Protocol: For patient's 13 years and over: Temp is 96.8 and below OR 101 and greater Pulse >90 BPM Resp >20/minute Acutely Altered Mental Status Are patient's symptoms suggestive of a new infection, such as: -Pneumonia -Skin, Soft Tissue -Endocarditis -UTI -Bone, Joint Infection -Implantable Device -Acute Abdominal Infection -Wound Infection -Meningitis -Blood Stream Catheter Infection -Unknown Musculoskeletal Complaint Exam - Lower Extremity Complaint/Exam Location of Pain: Reports: Right, Left, Leg Mechanism of Injury: Reports: No known trauma Onset/Duration: 1 day Symptoms Are: Still present Onset of Pain: Reports: Hours Initial Severity: Mild Current Severity: Mild Location: Reports: Discrete Character: Reports: Aching Alleviating: Reports: Rest Aggravating: Reports: Movement Able to Bear Weight: Yes Associated Signs and Symptoms: Denies: Swelling, Redness, Bruising, Fever, Weakness, Numbness, Tingling DVT Risk Factors: Reports: None Septic Arthritis Risk Factors: Reports: None Related Surgical History: Reports: None Lower Extremity Findings: Absent: Swelling, Ecchymosis, Abnormal contour, Rotation, Ligamentous instability, Laceration, Erythema, Warmth, Blisters Differential Diagnoses: Arthritis, Strain, Sprain Review of Systems - Review Of Systems Constitutional: Reports: No symptoms Eyes: Reports: No symptoms Ears, Nose, Mouth, Throat: Reports: No symptoms Respiratory: Reports: No symptoms Cardiac: Reports: No symptoms GI: Reports: No symptoms : Reports: No symptoms Musculoskeletal: Reports: Joint pain (leg pain) Skin: Reports: No symptoms Neurological: Reports: No symptoms Endocrine: Reports: No symptoms Hematologic/Lymphatic: Reports: No symptoms All Other Systems: Reviewed and Negative Past Medical History - Past Medical History Previously Healthy: Yes Endocrine: Reports: Hypothyroid Cardiovascular: Reports: CAD, Hypertension, A-Fib Respiratory: Reports: None Hematological: Reports: Anemia Gastrointestinal: Reports: GERD Genitourinary: Reports: Unknown (evaluated yesterday for UTI) Neuro/Psych: Reports: Depression, Bipolar Disorder, Dementia Musculoskeletal: Reports: Arthritis, Back Pain, Joint Pain, Unknown Cancer: Reports: Unknown Last Menstrual Period: unknown - Surgical History General Surgical History: Reports: Appendectomy - Family History Family History: Reports: Unknown - Social History Smoking Status: Never smoker Hx Substance Use: No Alcohol Screening: None Physical Exam - Physical Exam Appearance: Well-appearing, No pain distress, Well-nourished Eyes: BASIL, EOMI, Conjunctiva clear ENT: Ears normal, Nose normal, Oropharynx normal Respiratory: Airway patent, Breath sounds clear, Breath sounds equal, Respirations nonlabored Cardiovascular: RRR, Pulses normal, No rub, No murmur GI/: Soft, Nontender, No masses, Bowel sounds normal, No Organomegaly Musculoskeletal: Normal strength, ROM intact, No edema, No calf tenderness Skin: Warm, Dry, Normal color Neurological: Sensation intact, Motor intact, Reflexes intact, Cranial nerves intact, Alert, Oriented Psychiatric: Affect appropriate, Mood appropriate Re-Evaluation - Re-Evaluation Time of Re-Evaluation: 16:32 Status: Improved Vital Signs Stable: Yes Pain Level: 0 Appearance: NAD Lungs: Clear Skin: Warm and Dry Neuro: Alert and Oriented X3 CV: RRR Critical Care Note - Critical Care Note Total Time (mins): 0 Course - Course Hematology/Chemistry: 09/03/18 14:20 09/03/18 14:20 Orders, Labs, Meds: Lab Review 09/03/18 09/03/18 09/03/18 14:20 14:20 14:20 WBC 6.41 RBC 3.79 L Hgb 12.5 Hct 36.9 L MCV 97.4 MCH 33.0 H MCHC 33.9 RDW Coeff of [place] 13.0 Plt Count 233 Immature Gran % (Auto) 0.9 Neut % (Auto) 59.9 Lymph % (Auto) 25.7 [place] % (Auto) 11.1 H Eos % (Auto) 1.6 Baso % (Auto) 0.8 Immature Gran # (Auto) 0.1 Neut # (Auto) 3.8 Lymph # (Auto) 1.7 [place] # (Auto) 0.7 Eos # (Auto) 0.1 Baso # (Auto) 0.1 PT 11.0 INR 1.10 APTT 27.0 Sodium 132.0 L Potassium 4.20 Chloride 98.4 Carbon Dioxide 28.3 Anion Gap 9.50 BUN 19.8 H Creatinine 0.60 Estimated GFR (MDRD) 95.00 BUN/Creatinine Ratio 33.00 Glucose 106.5 H Calcium 9.31 Total Bilirubin 0.84 AST 22.7 ALT 15.9 Alkaline Phosphatase 79.4 Total Creatine Kinase 22.0 L Troponin I < 0.012 Total Protein 6.77 Albumin 3.91 Globulin 2.86 Albumin/Globulin Ratio 1.36 Orders Category Date Time Status EKG-(ED ONLY) Stat CARDIO 09/03/18 14:20 Completed ED IV/MEDIPORT/POWERPORT .ONCE EMERGENCY 09/03/18 14:20 Active CBC W/ AUTO DIFF Stat LAB 09/03/18 14:20 Completed COMPREHENSIVE METABOLIC PANEL Stat LAB 09/03/18 14:20 Completed CREATINE KINASE Stat LAB 09/03/18 14:20 Completed PARTIAL THROMBOPLASTIN TIME Stat LAB 09/03/18 14:20 Completed PT WITH INR Stat LAB 09/03/18 14:20 Completed TROPONIN I Stat LAB 09/03/18 14:20 Completed 0.9 % Sodium Chloride [Saline Flush] MEDS 09/03/18 14:20 Active 1 syr IVF PRN PRN CT CHEST W/O CONTRAST Stat RADS 09/03/18 14:[address] FOREARM LEFT WO CONTRAST Stat RADS 09/03/18 14:[address] HUMERUS LEFT W/O CONTRAST Stat RADS 09/03/18 14:23 Completed Medications Generic Name Dose Route Start Last Admin Trade Name Freq PRN Reason Stop Dose Admin Sodium Chloride 1 syr 09/03/18 14:20 Saline Flush IVF PRN PRN To flush IV Vital Signs: Temp Pulse Resp BP Pulse Ox 09/03/18 14:12 98.2 F 87 20 134/82 94 L Departure - Departure Time of Disposition: 16:33 Disposition: HOME SELF-CARE Discharge Problem: Leg pain, bilateral Instructions: Leg Pain (ED) Condition: Good Pt referred to PMD for follow-up: Yes IPMP verified?: No Additional Instructions: Please call your Family Physician as soon as possible to schedule a follow-up appointment.at this time there is no blood clots, must see your MD JOHNATHON Allergies/Adverse Reactions: Allergies haloperidol [From Haldol] Adverse Reaction (Verified 09/03/18 14:32) Penicillins Adverse Reaction (Verified 09/03/18 14:32) Home Medications: Ambulatory Orders Clonidine HCl [Catapres] 0.1 mg PO BID 05/02/13 Digoxin 0.125 mg PO DAILY 05/02/13 Furosemide [Lasix Tab] 20 mg PO QDAC 05/02/13 Nitroglycerin [Nitrostat] 0.4 mg SL Q5MIN X 3 DOSES PRN 05/02/13 Potassium Chloride [Micro-K Cap] 20 meq PO BID 07/29/13 Alprazolam [Xanax] 0.25 mg PO BEDTIME 11/11/13 Citalopram Hydrobromide [Celexa] 20 mg PO DAILY 12/18/13 Dexlansoprazole [Dexilant] 30 mg PO DAILY 05/26/17 Losartan Potassium [Cozaar] 50 mg PO DAILY 05/26/17 Acetaminophen [Tylenol] 1,000 mg PO BID 09/03/18 Bisacodyl [Dulcolax] 10 mg RC DAILY PRN 09/03/18 Diltiazem HCl [Cardizem] 120 mg PO DAILY 09/03/18 Docusate Sodium [Dok] 100 mg PO DAILY 09/03/18 Levofloxacin [Levaquin] 500 mg PO Q6HR PRN 09/03/18 Levothyroxine Sodium 175 mcg PO DAILY 09/03/18 Magnesium Hydroxide [Milk of Magnesia] 30 ml PO DAILY PRN 09/03/18 Rivaroxaban [Xarelto] 20 mg PO DAILY 09/03/18
[2018-09-03] MEDS ORDERED: DULCOLAX RC PRN (16:57)
[2018-09-03] MEDS ORDERED: NITROSTAT SL PRN (16:57)
--- NOTE | 2018-09-03 17:09 | ED.PDOC ---
General ED Provider: Dr. HARRIS HUFF Chief Complaint: Non-specific Complaint Stated Complaint: BRUSING OF LEFT ARM, CHEST BACK Time Seen by Physician: 14:19 (SEEN WITH PT'S NURSE AND HER FAMILY) Mode of Arrival: Stretcher Information Source: Patient Exam Limitations: No limitations Primary Care Provider: SERGIO GALEAS Nursing and Triage Documentation Reviewed and Agree: Yes Does patient meet sepsis criteria?: No System Inflammatory Response Syndrome: Not Applicable Sepsis Protocol: For patient's 13 years and over: Temp is 96.8 and below OR 101 and greater Pulse >90 BPM Resp >20/minute Acutely Altered Mental Status Are patient's symptoms suggestive of a new infection, such as: -Pneumonia -Skin, Soft Tissue -Endocarditis -UTI -Bone, Joint Infection -Implantable Device -Acute Abdominal Infection -Wound Infection -Meningitis -Blood Stream Catheter Infection -Unknown Skin Complaint Exam - Skin/Soft Tissue Complaint/Exam Onset/Duration: BRUSED LEFT ARM, CHEST Symptoms Are: Still present Timing: Constant Initial Severity: Moderate Current Severity: Moderate Location: SEE PHOTOS Character: Denies: Redness, Swelling, Raised, Painful Aggravating: Reports: None Alleviating: Reports: None Associated Signs and Symptoms: Reports: Bruising. Denies: Fever, Chills, Itching, Drainage, Tenderness, Red streaks, Joint swelling Related History: Reports: Similar episode Related Surgical History: Reports: None Recent Exposure to Others w/Similar Symptoms: No Skin Findings: Present: Other (SEE PHOTOS) Joint Tenderness Present: No Differential Diagnoses: Other (ECCHYMOSIS ) Review of Systems - Review Of Systems Constitutional: Reports: No symptoms Eyes: Reports: No symptoms Ears, Nose, Mouth, Throat: Reports: No symptoms Respiratory: Reports: No symptoms Cardiac: Reports: No symptoms GI: Reports: No symptoms : Reports: No symptoms Musculoskeletal: Reports: No symptoms Skin: Reports: Other (BRUSING ) Neurological: Reports: No symptoms Endocrine: Reports: No symptoms Hematologic/Lymphatic: Reports: No symptoms All Other Systems: Reviewed and Negative Past Medical History - Past Medical History Previously Healthy: Yes Endocrine: Reports: Hypothyroid Cardiovascular: Reports: CAD, Hypertension, A-Fib Respiratory: Reports: None Hematological: Reports: Anemia Gastrointestinal: Reports: GERD Genitourinary: Reports: Unknown (evaluated yesterday for UTI) Neuro/Psych: Reports: Depression, Bipolar Disorder, Dementia Musculoskeletal: Reports: Arthritis, Back Pain, Joint Pain, Unknown Cancer: Reports: Unknown Last Menstrual Period: unknown - Surgical History General Surgical History: Reports: Appendectomy - Family History Family History: Reports: Unknown - Social History Smoking Status: Never smoker Hx Substance Use: No Alcohol Screening: None Physical Exam - Physical Exam Appearance: Well-appearing, No pain distress, Well-nourished Eyes: BASIL, EOMI, Conjunctiva clear ENT: Ears normal, Nose normal, Oropharynx normal Respiratory: Airway patent, Breath sounds clear, Breath sounds equal, Respirations nonlabored Cardiovascular: RRR, Pulses normal, No rub, No murmur GI/: Soft, Nontender, No masses, Bowel sounds normal, No Organomegaly Musculoskeletal: Normal strength, ROM intact, No edema, No calf tenderness Skin: Warm, Dry, Normal color Neurological: Sensation intact, Motor intact, Reflexes intact, Cranial nerves intact, Alert, Oriented Psychiatric: Affect appropriate, Mood appropriate Physician Notification - Case Discussed Physician Notified: PMD Time of Notification: 17:10 (ADMITT RIZWAN ORTIZ S) Admit To: Inpatient Critical Care Note - Critical Care Note Total Time (mins): 0 Course - Course Hematology/Chemistry: 09/03/18 14:20 09/03/18 14:20 Orders, Labs, Meds: Lab Review 09/03/18 09/03/18 09/03/18 14:20 14:20 14:20 WBC 6.41 RBC 3.79 L Hgb 12.5 Hct 36.9 L MCV 97.4 MCH 33.0 H MCHC 33.9 RDW Coeff of Dixie 13.0 Plt Count 233 Immature Gran % (Auto) 0.9 Neut % (Auto) 59.9 Lymph % (Auto) 25.7 Lane % (Auto) 11.1 H Eos % (Auto) 1.6 Baso % (Auto) 0.8 Immature Gran # (Auto) 0.1 Neut # (Auto) 3.8 Lymph # (Auto) 1.7 Lane # (Auto) 0.7 Eos # (Auto) 0.1 Baso # (Auto) 0.1 PT 11.0 INR 1.10 APTT 27.0 Sodium 132.0 L Potassium 4.20 Chloride 98.4 Carbon Dioxide 28.3 Anion Gap 9.50 BUN 19.8 H Creatinine 0.60 Estimated GFR (MDRD) 95.00 BUN/Creatinine Ratio 33.00 Glucose 106.5 H Calcium 9.31 Total Bilirubin 0.84 AST 22.7 ALT 15.9 Alkaline Phosphatase 79.4 Total Creatine Kinase 22.0 L Troponin I < 0.012 Total Protein 6.77 Albumin 3.91 Globulin 2.86 Albumin/Globulin Ratio 1.36 Orders Category Date Time Status EKG-(ED ONLY) Stat CARDIO 09/03/18 14:20 Completed EKG-(IP & OP ONLY) DAILY CARDIO 09/04/18 06:00 Ordered EKG-(IP & OP ONLY) DAILY CARDIO 09/05/18 06:00 Ordered EKG-(IP & OP ONLY) DAILY CARDIO 09/06/18 06:00 Ordered Neuro Check [NEUROLOGICAL CHECKS] Q4HR CARE 09/03/18 17:00 Active VITAL SIGNS Q8HR CARE 09/03/18 16:59 Active REGULAR DIET DIETARY 09/03/18 Dinner Ordered ED IV/MEDIPORT/POWERPORT .ONCE EMERGENCY 09/03/18 14:20 Active CBC W/ AUTO DIFF DAILY@0600 LAB 09/04/18 06:00 Ordered CBC W/ AUTO DIFF DAILY@0600 LAB 09/05/18 06:00 Ordered CBC W/ AUTO DIFF Stat LAB 09/03/18 14:20 Completed COMPREHENSIVE METABOLIC PANEL DAILY@0600 LAB 09/04/18 06:00 Ordered COMPREHENSIVE METABOLIC PANEL DAILY@0600 LAB 09/05/18 06:00 Ordered COMPREHENSIVE METABOLIC PANEL Stat LAB 09/03/18 14:20 Completed CREATINE KINASE Stat LAB 09/03/18 14:20 Completed PARTIAL THROMBOPLASTIN TIME Stat LAB 09/03/18 14:20 Completed PT WITH INR Stat LAB 09/03/18 14:20 Completed TROPONIN I Stat LAB 09/03/18 14:20 Completed 0.9 % Sodium Chloride [Saline Flush] MEDS 09/03/18 14:20 Active 1 syr IVF PRN PRN Acetaminophen [Tylenol] MEDS 09/03/18 21:00 Active 1,000 mg PO BID Alprazolam [Xanax] MEDS 09/03/18 21:00 Active 0.25 mg PO BEDTIME Bisacodyl [Dulcolax] MEDS 09/03/18 16:57 Active 10 mg RC DAILY PRN Citalopram Hydrobromide [Celexa] MEDS 09/04/18 09:00 Active 20 mg PO DAILY Clonidine HCl [Catapres] MEDS 09/03/18 21:00 Active 0.1 mg PO BID Digoxin [Lanoxin] MEDS 09/04/18 09:00 Active 125 mcg PO DAILY Diltiazem HCl [Cardizem Cd] MEDS 09/04/18 09:00 Active 120 mg PO DAILY Docusate Sodium [Colace] MEDS 09/04/18 09:00 Active 100 mg PO DAILY Furosemide [Lasix Tab] MEDS 09/04/18 06:30 Active 20 mg PO QDAC Levothyroxine Sodium [Synthroid] MEDS 09/04/18 06:30 Active 100 mcg PO QDAC Levothyroxine Sodium [Synthroid] MEDS 09/04/18 06:30 Active 75 mcg PO QDAC Losartan Potassium [Cozaar] MEDS 09/04/18 09:00 Active 50 mg PO DAILY Nitroglycerin [Nitrostat] MEDS 09/03/18 16:57 Active 0.4 mg SL Q5MIN X 3 DOSES PRN Pantoprazole Sodium [Protonix] MEDS 09/04/18 06:30 Active 40 mg PO QDAC Potassium Chloride [Micro-K Cap] MEDS 09/03/18 21:00 Ordered 20 meq PO BID Sodium Chloride 0.9% [Sodium Chloride] 1,000 ml MEDS 09/03/18 17:00 Active IV 75 mls/hr CT CHEST W/O CONTRAST Stat RADS 09/03/18 14:[address] FOREARM LEFT WO CONTRAST Stat RADS 09/03/18 14:[address] HEAD W/O CONTRAST Stat RADS 09/03/18 17:[address] HUMERUS LEFT W/O CONTRAST Stat RADS 09/03/18 14:23 Completed Medications Generic Name Dose Route Start Last Admin Trade Name Freq PRN Reason Stop Dose Admin Acetaminophen 1,000 mg 09/03/18 21:00 Tylenol PO BID SANCHEZ Alprazolam 0.25 mg 09/03/18 21:00 Xanax PO BEDTIME SANCHEZ Bisacodyl 10 mg 09/03/18 16:57 Dulcolax RC DAILY PRN Constipation Citalopram Hydrobromide 20 mg 09/04/18 09:00 Celexa PO DAILY SANCHEZ Clonidine 0.1 mg 09/03/18 21:00 Catapres PO BID SANCHEZ Digoxin 125 mcg 09/04/18 09:00 Lanoxin PO DAILY SANCHEZ Diltiazem HCl 120 mg 09/04/18 09:00 Cardizem Cd PO DAILY SANCHEZ Docusate Sodium 100 mg 09/04/18 09:00 Colace PO DAILY SANCHEZ Furosemide 20 mg 09/04/18 06:30 Lasix Tab PO QDAC SANCHEZ Sodium Chloride 1,000 mls @ 75 mls/hr 09/03/18 17:00 Sodium Chloride IV .[id number] SANCHEZ Levothyroxine Sodium 100 mcg 09/04/18 06:30 Synthroid PO QDAC SANCHEZ Levothyroxine Sodium 75 mcg 09/04/18 06:30 Synthroid PO QDAC SANCHEZ Losartan Potassium 50 mg 09/04/18 09:00 Cozaar PO DAILY SANCHEZ Nitroglycerin 0.4 mg 09/03/18 16:57 Nitrostat SL Q5MIN X 3 DOSES PRN Angina Pantoprazole Sodium 40 mg 09/04/18 06:30 Protonix PO QDAC SANCHEZ Potassium Chloride 20 meq 09/03/18 21:00 Micro-K Cap PO BID SANCHEZ Sodium Chloride 1 syr 09/03/18 14:20 Saline Flush IVF PRN PRN To flush IV Vital Signs: Temp Pulse Resp BP Pulse Ox 09/03/18 14:12 98.2 F 87 20 134/82 94 L Departure - Departure Time of Disposition: 17:10 Disposition: ADMITTED INPATIENT Discharge Problem: Fall Qualifiers: Encounter type: initial encounter Qualified Code(s): W19.XXXA - Unspecified fall, initial encounter Instructions: Fall Prevention (ED) Condition: Good Pt referred to PMD for follow-up: Yes IPMP verified?: No Allergies/Adverse Reactions: Allergies haloperidol [From Haldol] Adverse Reaction (Verified 09/03/18 14:32) Penicillins Adverse Reaction (Verified 09/03/18 14:32) Home Medications: Ambulatory Orders Clonidine HCl [Catapres] 0.1 mg PO BID 05/02/13 Digoxin 0.125 mg PO DAILY 05/02/13 Furosemide [Lasix Tab] 20 mg PO QDAC 05/02/13 Nitroglycerin [Nitrostat] 0.4 mg SL Q5MIN X 3 DOSES PRN 05/02/13 Potassium Chloride [Micro-K Cap] 20 meq PO BID 07/29/13 Alprazolam [Xanax] 0.25 mg PO BEDTIME 11/11/13 Citalopram Hydrobromide [Celexa] 20 mg PO DAILY 12/18/13 Dexlansoprazole [Dexilant] 30 mg PO DAILY 05/26/17 Losartan Potassium [Cozaar] 50 mg PO DAILY 05/26/17 Acetaminophen [Tylenol] 1,000 mg PO BID 09/03/18 Bisacodyl [Dulcolax] 10 mg RC DAILY PRN 09/03/18 Diltiazem HCl [Cardizem] 120 mg PO DAILY 09/03/18 Docusate Sodium [Dok] 100 mg PO DAILY 09/03/18 Levofloxacin [Levaquin] 500 mg PO Q6HR PRN 09/03/18 Levothyroxine Sodium 175 mcg PO DAILY 09/03/18 Magnesium Hydroxide [Milk of Magnesia] 30 ml PO DAILY PRN 09/03/18 Rivaroxaban [Xarelto] 20 mg PO DAILY 09/03/18 Disposition Discussed With: Patient, Family
--- NOTE | 2018-09-03 17:38 | CT ---
EXAM: Noncontrast CT head. HISTORY: Fall. COMPARISON: 04/29/2016 TECHNIQUE: Noncontrast CT head was performed with axial, coronal and sagital reconstructions. Findings: There is preservation of the shaffer-white differential without evidence of definitive large vessel acut e cortical infarct identified. No acute intracranial hemorrhage is identified. No midline shift is identified. No definitive intracranial mass lesion is identified within technical limitations of non contrast CT. The basal cisterns are patent. There is mild ventricular enlargement suggesting diffus e brain parenchymal volume loss. Bilateral white matter hypodensities are present. Limited evaluati on of the skull demonstrates no visualized lucent skull acute fractures or destructive osseous lesion s identified within the visualized portions of the skull. Partially visualized paranasal sinuses and mastoid air cells appear relatively clear in the visualized regions. Impression: 1. No acute intracranial hemorrhage or definitive large vessel acute cortical infarct identified. 2. Diffuse brain parenchymal volume loss likely age related. 3. Bilateral white matter hypodensities which are not specicific but can be seen with chronic microv ascular ischemic disease.
[2018-09-03] MEDS: SODIUM CHLORIDE 1,000 ML IV SCH (18:25)
[2018-09-03] MEDS: TYLENOL PO SCH (20:20)
[2018-09-03] MEDS: MICRO-K CAP PO SCH (20:21)
[2018-09-03] MEDS: XANAX PO SCH (20:21)
[2018-09-03] MEDS: CATAPRES PO SCH (20:21)
[2018-09-03 22:42] VITALS: BMI 29.0
[2018-09-04] MEDS: PROTONIX PO SCH (05:40)
[2018-09-04] MEDS: SYNTHROID PO SCH ×2 (05:40)
[2018-09-04] MEDS: LASIX TAB PO SCH (05:40)
[2018-09-04] MEDS ORDERED: NON-FORMULARY MEDICATION (Citalopram Hydrobromide [Celexa] 20 MG) PO SCH (09:00)
[2018-09-04] MEDS ORDERED: NON-FORMULARY MEDICATION (Diltiazem Hcl [Cardizem] 120 MG) PO SCH (09:00)
[2018-09-04] MEDS ORDERED: COZAAR PO SCH ×2 (09:00)
[2018-09-04] MEDS ORDERED: NON-FORMULARY MEDICATION (Digoxin [Digoxin] 0.125 MG) PO SCH (09:00)
[2018-09-04] MEDS ORDERED: LEVOTHYROXINE SODIUM 175 MCG PO SCH (09:00)
[2018-09-04] MEDS ORDERED: NON-FORMULARY MEDICATION (Losartan Potassium 50 MG) PO SCH (09:00)
[2018-09-04] MEDS ORDERED: NON-FORMULARY MEDICATION (Dexlansoprazole [Dexilant] 30 MG) PO SCH (09:00)
[2018-09-04] MEDS ORDERED: CARDIZEM CD PO SCH ×2 (09:00)
--- NOTE | 2018-09-04 09:12 | PCM.PROG ---
Attending Provider: ATTENDING PROVIDER: Dr. SERGIO GALEAS This patient is seen with Roro Vargas, Nurse Practitioner. DATE OF SERVICE: 09/04/18 SUBJECTIVE: This 88 year old WHITE/ F was hospitalized 09/03/18. The patient is resting comfortably. Her sister is present. Discussed the risks and benefits associated with Xarelto. Apparent leg elbow fracture on CT appears to be chronic and not acute. Hgb stable. REVIEW OF SYSTEMS: CONSTITUTIONAL: No night sweats. No fatigue, malaise, lethargy. No fever or chills. Weakness. HEENT: Eyes: No visual changes. No eye pain. No eye discharge. ENT: No runny nose. No epistaxis. No sinus pain. No odynophagia. No congestion. RESPIRATORY: No cough, no congestion. No hemoptysis. No shortness of breath. CARDIOVASCULAR: No angina symptoms. No CHF symptoms. No atypical chest pain for CAD. No palpitations. No orthopnea.. GASTROINTESTINAL: No abdominal pain. No nausea or vomiting. No diarrhea or constipation. No hematemesis. No hematochezia. GENITOURINARY: No urgency. No frequency. No dysuria. No hematuria. No obstructive symptoms. No discharge. No pain. No significant abnormal bleeding. MUSCULOSKELETAL: No musculoskeletal pain; no joint swelling. NEUROLOGICAL: Awake, alert, oriented to time, place and person. No headache. No neck pain. No syncope. No seizures. No dizziness. PSYCHIATRIC: Not anxious. No depression. No suicidal thoughts. No homicidal thoughts. Confusion. SKIN: No rash. No lesions. No wounds. Bruising. ENDOCRINE: No unexplained weight loss. No weight gain. HEMATOLOGIC/LYMPHATIC: No anemia. No purpura. No petechiae. No prolonged or excessive bleeding. No palpable lymph nodes. PHYSICAL EXAMINATION: GENERAL: The patient is awake, alert and oriented, lying/sitting in bed in no distress. VITAL SIGNS: Temperature 97.9 F, Pulse 97, Respiratory Rate 16, BP 159/97, Pulse Ox 96% HEENT: Head normocephalic, atraumatic. Eyes: Extraocular muscles are intact. Pupils are equal, round and reactive to light and accommodation. Ears: No lesions. Nose appeared normal. Throat: No exudate or erythema. NECK: Supple. No JVD, no carotid bruit. No lymphadenopathy or thyromegaly. LUNGS: Clear to auscultation. Percussion note normal. Chest symmetrical. HEART: Irregular heart rate. S1, S2, no S3. No murmurs. No cyanosis or clubbing. No ascites. Pulses: Dorsalis pedis and posterior tibial pulses +1 to +2 both sides. ABDOMEN: Soft. Non-tender. Bowel sounds active. No CVA tenderness. No mass felt. EXTREMITIES: No edema. Full range of motion of all extremities, equal. NEUROLOGIC: No focal deficit. Cranial nerves II through XII are grossly intact. No headache, no double vision or headache. SKIN: Not dry. Intact. Turgor-normal. Bruising to left upper chest and left arm. LYMPHATIC: No palpable lymph nodes/no lymphedema. MUSCULOSKELETAL: Normal joints with no swelling. Muscle tone is normal. LAB REVIEW: 09/04/18 04:15 09/04/18 04:15 09/04/18 04:15: Sodium 133.4 L, Potassium 3.88, Chloride 103.4, Carbon Dioxide 26.9, Anion Gap 6.98, BUN 15.4, Creatinine 0.61, Estimated GFR (MDRD) 93.00, BUN /Creatinine Ratio 25.24, Glucose 115.0 H, Calcium 9.21, Total Bilirubin 0.84, AST 16.5, ALT 14.7, Alkaline Phosphatase 74.9, Total Protein 5.84 L, Albumin 3.24 L, Globulin 2.60, Albumin/Globulin Ratio 1.24 09/04/18 04:15: WBC 5.37, RBC 3.56 L, Hgb 11.7 L, Hct 34.2 L, MCV 96.1, MCH 32.9 H, MCHC 34.2, RDW Coeff of Dixie 12.7, Plt Count 210, Immature Gran % (Auto) 1.1, Neut % (Auto) 57.7, Lymph % (Auto) 25.7, Holmes % (Auto) 11.0 H, Eos % (Auto ) 3.4, Baso % (Auto) 1.1, Immature Gran # (Auto) 0.1, Neut # (Auto) 3.1, Lymph # (Auto) 1.4, Holmes # (Auto) 0.6, Eos # (Auto) 0.2, Baso # (Auto) 0.1 09/03/18 14:20: Sodium 132.0 L, Potassium 4.20, Chloride 98.4, Carbon Dioxide 28.3, Anion Gap 9.50, BUN 19.8 H, Creatinine 0.60, Estimated GFR (MDRD) 95.00, BUN/Creatinine Ratio 33.00, Glucose 106.5 H, Calcium 9.31, Total Bilirubin 0.84 , AST 22.7, ALT 15.9, Alkaline Phosphatase 79.4, Total Creatine Kinase 22.0 L, Troponin I < 0.012, Total Protein 6.77, Albumin 3.91, Globulin 2.86, Albumin/ Globulin Ratio 1.36 09/03/18 14:20: PT 11.0, INR 1.10, APTT 27.0 09/03/18 14:20: WBC 6.41, RBC 3.79 L, Hgb 12.5, Hct 36.9 L, MCV 97.4, MCH 33.0 H , MCHC 33.9, RDW Coeff of Dixie 13.0, Plt Count 233, Immature Gran % (Auto) 0.9, Neut % (Auto) 59.9, Lymph % (Auto) 25.7, Holmes % (Auto) 11.1 H, Eos % (Auto) 1.6 , Baso % (Auto) 0.8, Immature Gran # (Auto) 0.1, Neut # (Auto) 3.8, Lymph # ( Auto) 1.7, Holmes # (Auto) 0.7, Eos # (Auto) 0.1, Baso # (Auto) 0.1 ASSESSMENT: Please see below. 1. Bruising likely from Xarelto 2. Atrial fibrillation 3. Dementia 4. History of psychosis hypertension PLAN: 1. X-ray left arm and wrist 2. Increase Cozaar 100mg 3. D/c IV fluids 4. Dig level 5. Consider stopping Xarelto Plan and coordination of the patient's care discussed in the presence of Shuttle Repairer and nurse. SCRIBED BY: Yung AUGUSTINEist scribed while in presence of service performed by Dr. Galeas/Roro Vargas APRN on 09/04/18 ([id number])
[2018-09-04] MEDS: LANOXIN PO SCH (09:34)
[2018-09-04] MEDS: SODIUM CHLORIDE 1,000 ML IV SCH (09:34)
[2018-09-04] MEDS: CATAPRES PO SCH ×2 (09:34→21:00)
[2018-09-04] MEDS: CARDIZEM PO SCH ×2 (09:35→21:00)
[2018-09-04] MEDS: TYLENOL PO SCH ×2 (09:35→21:00)
[2018-09-04] MEDS: CELEXA PO SCH (09:35)
[2018-09-04] MEDS: COLACE PO SCH (09:35)
[2018-09-04] MEDS: MICRO-K CAP PO SCH ×2 (09:35→21:00)
--- NOTE | 2018-09-04 14:03 | DI ---
EXAM: Three views of the left wrist. History: Left wrist trauma. Findings: Severe diffuse subcutaneous edema. Osteopenia. No fractures are seen. There is widening of the scapholunate interval which is most likely degenerative in nature. Osteopenia. Moderate lubna yarticular arthritis. Impression: 1. No acute osseous abnormality. 2. Chronic widening of the scapholunate interval. 3. Cellulitis
--- NOTE | 2018-09-04 14:11 | DI ---
EXAM: Two views of the left forearm. History: Left forearm trauma. 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 Grossly intact hardware withi n the distal humerus. Osteopenia. Diffuse subcutaneous edema. No acute fracture or dislocation Impression: 1. No acute osseous abnormality. 2. 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 3. Diffuse subcutaneous edema/cellulitis
--- NOTE | 2018-09-04 14:15 | DI ---
EXAM: Three views of the left elbow. History: Left elbow trauma. Findings: Osteopenia. 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 Grossly intact hardware in the distal humerus. No dislocation and no acute fractures. Diffuse subcutaneous edema. Impression: 1. No acute osseous abnormality. 2. 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 3. Diffuse subcutaneous edema
--- NOTE | 2018-09-04 14:15 | DI ---
EXAM: Two views of the left shoulder. History: Left shoulder trauma. Findings: Osteopenia. No acute fracture or dislocation. Hardware seen within the distal humerus. Impression: No acute osseous abnormalities
[2018-09-04] MEDS: XANAX PO SCH (21:00)
[2018-09-05 05:03] VITALS: BP 141/92; TEMP 97.7
[2018-09-05] MEDS: SYNTHROID PO SCH ×2 (05:45)
[2018-09-05] MEDS: LASIX TAB PO SCH (05:46)
[2018-09-05] MEDS: PROTONIX PO SCH (05:46)
[2018-09-05] MEDS ORDERED: DULCOLAX RC STA (08:13)
[2018-09-05] MEDS: CELEXA PO SCH (08:34)
[2018-09-05] MEDS: CARDIZEM PO SCH (08:34)
[2018-09-05] MEDS: TYLENOL PO SCH (08:34)
[2018-09-05] MEDS: CATAPRES PO SCH (08:34)
[2018-09-05] MEDS: COLACE PO SCH (08:35)
[2018-09-05] MEDS: MICRO-K CAP PO SCH (08:35)
[2018-09-05] MEDS: LANOXIN PO SCH (08:40)
[2018-09-05] MEDS ORDERED: COZAAR PO SCH (09:00)
--- NOTE | 2018-09-05 09:13 | PCM.PROG ---
Attending Provider: ATTENDING PROVIDER: Dr. SERGIO GALEAS This patient is seen with Roro Vargas, Nurse Practitioner. DATE OF SERVICE: 09/05/18 SUBJECTIVE: This 88 year old WHITE/ F was hospitalized 09/03/18. The patient is lying in bed resting comfortably. Hemoglobin is stable, actually improved from yesterday. Bruising slowly improving. Imaging reveals old fracture of the left elbow, nothing acute. Discussed with daughter and she has decided to discontinue Xarelto. The risk of stroke with Xarelto, risk of bleeding and aging discussed in detail. REVIEW OF SYSTEMS: CONSTITUTIONAL: Generalized weakness. No night sweats. No fatigue, malaise, lethargy. No fever or chills. HEENT: Eyes: No visual changes. No eye pain. No eye discharge. ENT: No runny nose. No epistaxis. No sinus pain. No odynophagia. No congestion. RESPIRATORY: No cough, no congestion. No hemoptysis. No shortness of breath. CARDIOVASCULAR: No angina symptoms. No CHF symptoms. No atypical chest pain for CAD. No palpitations. No orthopnea.. GASTROINTESTINAL: No abdominal pain. No nausea or vomiting. No diarrhea or constipation. No hematemesis. No hematochezia. GENITOURINARY: No urgency. No frequency. No dysuria. No hematuria. No obstructive symptoms. No discharge. No pain. No significant abnormal bleeding. MUSCULOSKELETAL: No musculoskeletal pain; no joint swelling. NEUROLOGICAL: Awake with confusion. No headache. No neck pain. No syncope. No seizures. No dizziness. PSYCHIATRIC: Not anxious. No depression. No suicidal thoughts. No homicidal thoughts. SKIN: No rash. No lesions. No wounds. ENDOCRINE: No unexplained weight loss. No weight gain. HEMATOLOGIC/LYMPHATIC: No anemia. No purpura. No petechiae. No prolonged or excessive bleeding. No palpable lymph nodes. PHYSICAL EXAMINATION: GENERAL: The patient is awake, alert and oriented, lying/sitting in bed in no distress. VITAL SIGNS: Temperature 97.7 F, Pulse 74, Respiratory Rate 18, BP 141/92, Pulse Ox 95% HEENT: Head normocephalic, atraumatic. Eyes: Extraocular muscles are intact. Pupils are equal, round and reactive to light and accommodation. Ears: No lesions. Nose appeared normal. Throat: No exudate or erythema. NECK: Supple. No JVD, no carotid bruit. No lymphadenopathy or thyromegaly. LUNGS: Diminished breath sounds. Clear to auscultation. Percussion note normal. Chest symmetrical. HEART: Irregular heart rate. S1, S2, no S3. No murmurs. No cyanosis or clubbing. No ascites. Pulses: Dorsalis pedis and posterior tibial pulses +1 to +2 both sides. ABDOMEN: Soft. Non-tender. Bowel sounds active. No CVA tenderness. No mass felt. EXTREMITIES: No edema. Full range of motion of all extremities, equal. NEUROLOGIC: No focal deficit. Cranial nerves II through XII are grossly intact. No headache, no double vision or headache. SKIN: Not dry. Intact. Turgor-normal. LYMPHATIC: No palpable lymph nodes/no lymphedema. MUSCULOSKELETAL: Normal joints with no swelling. Muscle tone is normal. LAB REVIEW: 09/05/18 04:45 09/05/18 04:45 09/05/18 04:45: Sodium 133.2 L, Potassium 3.48 L, Chloride 100.2, Carbon Dioxide 30.4 H, Anion Gap 6.08, BUN 11.5, Creatinine 0.64, Estimated GFR (MDRD) 88.00, BUN/Creatinine Ratio 17.96, Glucose 118.8 H, Calcium 9.18, Total Bilirubin 1.13, AST 20.2, ALT 13.8, Alkaline Phosphatase 86.4, Total Protein 6.27 L, Albumin 3.52, Globulin 2.75, Albumin/Globulin Ratio 1.28 09/05/18 04:45: WBC 5.82, RBC 3.79 L, Hgb 12.2, Hct 36.5 L, MCV 96.3, MCH 32.2 H , MCHC 33.4, RDW Coeff of Dixie 12.9, Plt Count 241, Immature Gran % (Auto) 0.5, Neut % (Auto) 64.3, Lymph % (Auto) 21.8, Alfalfa % (Auto) 10.1 H, Eos % (Auto) 2.1 , Baso % (Auto) 1.2, Immature Gran # (Auto) 0.0, Neut # (Auto) 3.7, Lymph # ( Auto) 1.3, Alfalfa # (Auto) 0.6, Eos # (Auto) 0.1, Baso # (Auto) 0.1 09/04/18 04:20: Digoxin 0.66 L ASSESSMENT: 1. Bruising likely from Xarelto 2. Atrial fibrillation 3. Dementia 4. History of psychosis 5. Hypertension PLAN: 1. Dulcolax suppository. 2. Discharge back to [facility]. 3. Cozaar 100 mg daily. 4. D/C Xarelto. 5. T4, TSH if not done. Plan and coordination of the patient's care discussed in the presence of Broadcast News Producer and nurse. CONDITION: Stable SCRIBED BY: Corey JACKSON scribed while in presence of service performed by Dr. Galeas/Roro Vargas APRN on 09/05/18 ([id number])
--- NOTE | 2018-09-05 10:58 | HP ---
DATE OF SERVICE: 09/03/18 HISTORY OF PRESENT ILLNESS: This is an 88-year-old white female who is a resident at [facility]. The custodial notified me this morning that she had had some abnormal bruising. She is on Xarelto. We instructed her to send her to the emergency room and she is admitted with excessive bruising on her upper chest, left arm. PAST MEDICAL HISTORY: Hypothyroidism Coronary artery disease Hypertension Atrial fibrillation on Xarelto History of anemia GERD Chronic kidney disease Depression Bipolar disorder Dementia with behavioral disturbances History of psychosis Polyarthritis Back pain Obesity Anxiety Depression PAST SURGICAL HISTORY: Appendectomy REVIEW OF SYSTEMS: CONSTITUTIONAL: No night sweats. No fatigue, malaise, lethargy. No fever or chills. HEENT: Eyes: No visual changes. No eye pain. No eye discharge. ENT: No runny nose. No epistaxis. No sinus pain. No sore throat. No odynophagia. No ear pain. No congestion. RESPIRATORY: No cough, no congestion. No hemoptysis. No shortness of breath. CARDIOVASCULAR: No angina symptoms. No CHF symptoms. No atypical chest pain for CAD. No palpitations. No PND. No orthopnea. GASTROINTESTINAL: No abdominal pain. No nausea or vomiting. No diarrhea or constipation. No hematemesis. No hematochezia. GENITOURINARY: No urgency. No frequency. No dysuria. No hematuria. No obstructive symptoms. No discharge. No pain. No significant abnormal bleeding. MUSCULOSKELETAL: Weakness. Left arm contracture. NEUROLOGICAL: She is noncommunicative. No headache. No neck pain. No syncope. No seizures. No dizziness. PSYCHIATRIC: Not anxious. No depression. No suicidal thoughts. No homicidal thoughts. SKIN: Positive for excessive bruising. ENDOCRINE: No unexplained weight loss. No weight gain. HEMATOLOGIC/LYMPHATIC: No anemia. No purpura. No petechiae. No prolonged or excessive bleeding. No palpable lymph nodes. PERSONAL/FAMILY/SOCIAL HISTORY: She is a nonsmoker. No alcohol or illicit drug use. MEDICATIONS: (NH MEDICATIONS) Nitroglycerin 0.4 mg SL q.5 min times three doses p.r.n. Catapres 0.1 mg p.o. b.i.d. Lasix 20 mg p.o. q.d a.c. Digoxin 0.125 mg p.o. daily Micro-K cap 20 mEq p.o. b.i.d. Xanax 0.25 mg p.o. bedtime Celexa 20 mg p.o. daily Dexilant 30 mg p.o. daily Cozaar 50 mg p.o. daily Milk of Magnesia 30 mL p.o. daily p.r.n. Levothyroxine 175 mcg p.o. daily Dulcolax 10 mg RC daily p.r.n. Docusate Sodium 100 mg p.o. daily Cardizem 120 mg p.o. b.i.d. Xarelto 20 mg p.o.daily Tylenol 1,000 mg p.o. b.i.d. Levaquin 500 mg p.o. q.6hr p.r.n. ALLERGIES: HALOPERIDOL, PENICILLINS PHYSICAL EXAMINATION: VITAL SIGNS: HEENT: Head normocephalic, atraumatic. Eyes: Extraocular muscles are intact. Pupils are equal, round and reactive to light and accommodation. Ears: No lesions. Nose appeared normal. Throat: No exudate or erythema. NECK: Supple. No JVD, no carotid bruit. No lymphadenopathy or thyromegaly. LUNGS: Diminished breath sounds. Clear to auscultation. Percussion note normal. Chest symmetrical. HEART: Irregular heart rate consistent with atrial fibrillation. S1, S2, no S3. No murmurs. No cyanosis or clubbing. No ascites. Pulses: Dorsalis pedis and posterior tibial pulses +1 to +2 bilaterally. She has various stages of bruising left upper chest down her left arm. No edema. ABDOMEN: Soft. Nontender. Bowel sounds active. No CVA tenderness. No mass felt. EXTREMITIES: No edema. Full range of motion of all extremities, equal. NEUROLOGIC: No focal deficit. Cranial nerves II through XII are grossly intact. No headache, no double vision or headache. SKIN: Warm and dry. Intact. Turgor - normal. LYMPHATIC: No palpable lymph nodes/no lymphedema. MUSCULOSKELETAL: Normal joints with no swelling. Muscle tone is normal. 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 CT of the left humerus shows osteoarthritis, chronic rotator cuff disease and post surgical changes of the right elbow with chronic fracture of the humerus. Sodium 132, potassium 4.2, BUN 19, creatinine 0.6, glucose 106, AST 22, ALT 15. Troponin is normal. Alkaline phosphatase 79. PT 11, INR 1.1. PTT 27, white count 6.4, hemoglobin 12.5, hematocrit 36.9, platelets 233. ASSESSMENT: 1. EXCESSIVE BRUISING, PATIENT ON XARELTO. 2. ATRIAL FIBRILLATION. 3. CORONARY ARTERY DISEASE. 4. MILD ANEMIA. 5. HYPERTENSION. PLAN: 1. We will admit. 2. Routine telemetry orders. 3. CBC, CMP daily. 4. Will discuss with the family risks vs benefits of Xarelto at this point due to her age, risk of falls, her current quality of life and medical status. 5. NS at 75 cc/hr. 6. Digoxin level. 7. Continue all home medications. 8. Low sodium diet. 9. UA. 10. Will follow closely. TIME SPENT: More than 70 minutes. MTDD
--- NOTE | 2018-09-05 11:29 | PN ---
DATE OF SERVICE: 09/04/18 SUBJECTIVE: The patient was seen and examined with the nurse practitioner. The patient has petechiae on the left forearm, left wrist area superficial. Hemoglobin and hematocrit stable. She is not actively bleeding. She is confused, demented. Advanced Alzheimer's disease. She has been in the [facility] for number of years. Will discuss further with the sister about the Pradaxa. TIME SPENT: More than 30 minutes. Plan and coordination of the patient's care discussed in the presence of nurse. AMIRA
--- NOTE | 2018-09-08 13:54 | PN ---
DATE OF SERVICE: 09/05/18 SUBJECTIVE: The patient was seen and examined with the Nurse Practitioner. The patient's condition it stable and she is not bleeding anymore. The family discussed about Xarelto and other Novel blood thinners like Coumadin etc. The patient's fall risk is high. She is demented. After long discussion with the family along with health care team including nursing staff we all agreed that patient should be taken off blood thinner Xarelto and she isn't a candidate for any blood thinner because of her high risk of fall and dementia. The patient's condition is otherwise stable. TIME SPENT: More than 30 minutes. Plan and coordination of the patient's care discussed in the presence of nurse. AMIRA
--- NOTE | 2018-09-08 13:56 | PN ---
09/03/18: Level 5 09/04/18: Intermediate 09/05/18: D as in discharge MTDD
--- NOTE | 2018-09-16 11:59 | DS ---
DATE OF SERVICE: 09/05/18 FINAL DIAGNOSIS: 1. Excessive bruising on left upper chest and left arm due to Xarelto 2. Dementia with psychosis 3. 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 Atrial fibrillation 5. Coronary artery disease 6. Hypertension 7. GERD DISCHARGE INSTRUCTIONS: Discharge back to [facility] today 09/05/18. CBC and CMP in one week , then monthly. T4, TSH and Lipids every 6 months, T4 and TSH were completed today. Followup with Dr. Aguilar/ Ingrid Vargas APRN on senior care rounds. Continue home medications per nursing sheet except discontinue Xarelto and increase Cozaar to 100mg PO daily. MEDICATIONS AT DISCHARGE: Nitrostat 0.4mg SL Q 5 minutes x 3 doses PRN Catapres 0.1mg PO twice a day Lasix 20mg PO QDAC Digoxin 0.125mg PO daily Micro K Capsule 20meq PO twice a day Xanax 0.25mg PO bedtime Celexa 20mg PO daily Dexilant 30mg PO daily Milk of Magnesia 30ml PO dailuy PRN Levothyroxine Sodium 175mcg PO daily Dulcolax 10mg RC daily PRN Docusate Sodium 100mg PO daily Cardizem 120mg PO twice a day Tylenol 1,000mg PO twice ad ay NEW PRESCRIPTIONS: Cozaar 100mg PO daily DIET INSTRUCTIONS: As tolerated ACTIVITY: As tolerated, PT and OT to evaluate and treat. SMOKING: N/A DISEASE SPECIFIC EDUCATION: Medication change Labs Followup HOSPITAL COURSE: This is an 88 year old white female who was brought to the emergency room from [place] for excessive bruising down her left arm and left upper chest. She did not experience any falls. She is on Xarelto. CBC was slightly abnormal with HGB of 11.5 as she was put in due to excessive bruising. CT of chest and arms showed no acute process. She does have a chronic fracture of her left elbow which is nonhealing and has been present for some time. She is noncommunicative due to severe dementia and psychosis. She has a history of stroke. Her daughter was present during her hospital. We discussed with risks versus benefits with the Xarelto. Risking of bleeding, risks of stroke associated with atrial fibrillation. Daughter would like to stop Xarelto due to risk of falls, her age and failing health, risk of bleeding. We feel that at this point the the risks outweigh the benefits we will stop the Xarelto. We are in agreement with this. Her blood pressure was elevated. We have increased her Cozaar to 100mg daily and seem to be more controlled. T4 and TSH were done prior to discharge which are normal. She has a history of hypothyroidism. Blood pressures have been down since yesterday 140/35. Hgb is even more improved today 12.2. Bruising is in various stages on the left arm. She does not appear to be in any pain. She makes no facial grimaces so we will discharge her back to the senior care with a repeat CBC and CMP in one week. During the entire time of her hospital stay PT , PTT and INR have all been normal. TIME SPENT: More than 60 minutes. [id number]
== END 2018-09-05 16:10 | DRG 605 ==
LOC: ED 14:08 → MEDSURG B 17:12
PROVIDERS: ADMIT Internal Medicine; ATTEND Internal Medicine
DX: S20.219A Contusion of unspecified front wall of thorax, initial encounter (principal); F03.90 Unspecified dementia, unspecified severity, without behavioral disturbance, psychotic disturbance, mood disturbance, and anxiety; R41.0 Disorientation, unspecified; I48.91 Unspecified atrial fibrillation; I25.10 Atherosclerotic heart disease of native coronary artery without angina pectoris; I10 Essential (primary) hypertension; K21.9 Gastro-esophageal reflux disease without esophagitis; M84.48XG Pathological fracture, other site, subsequent encounter for fracture with delayed healing; D64.9 Anemia, unspecified; W19.XXXA Unspecified fall, initial encounter; Z79.01 Long term (current) use of anticoagulants
CPT/HCPCS: 36415; 80053; 80162; 82550; 84439; 84443; 84484; 85025; 85610; 85730; 87081; 93005; 93010; 99223; 99232; 99239; 99284